=== PATIENT | female | born 1945 | race African-American/Black ===

== ENCOUNTER → 2016-12-23 | Outpatient (CLI) | payer MEDICARE | LOC: RAD 09:19 | PROVIDERS: ATTEND Internal Medicine | DX: C34.2 Malignant neoplasm of middle lobe, bronchus or lung (principal) | CPT/HCPCS: 71260; 74177 ==

== ENCOUNTER → 2017-01-11 | Outpatient (CLI) | payer MEDICARE | LOC: RAD 10:12 | PROVIDERS: ATTEND Internal Medicine | DX: C34.2 Malignant neoplasm of middle lobe, bronchus or lung (principal); M81.0 Age-related osteoporosis without current pathological fracture | CPT/HCPCS: 78306; 77080; A9503; Q9969 ==

== ENCOUNTER → 2017-03-24 | Outpatient (CLI) | payer MEDICARE ==
--- NOTE | 2017-03-24 11:16 | RADIOLOGY REPORT (SQ) ---
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 Images reviewed with lung, soft tissue and bone windows. Reconstructed coronal and sagittal MPR images reviewed. All images stored on PACS. All CT scanners at this facility use dose modulation, iterative reconstruction, and/or weight based d osing when appropriate to reduce radiation dose to as low as reasonably achievable (ALARA). [facility]: Dose Right [facility]: CareDose [facility]: Dose Right [facility]: Teradose 4D [facility]: [employer] CONTRAST TYPE AND DOSE: 91 Isovue 370- low osmolar. RENAL FUNCTION: Creatinine 0.8 RADIATION DOSE: . LIMITATIONS: None. FINDINGS: LUNGS AND PLEURA: The previously described spiculated nodule in the left lung apex appears slightly smaller on the current study measuring 9.9 mm in greatest diameter. The previously describ ed right upper lobe cavitary post treatment consolidation appears essentially unchanged as compared t o the previous study. The previously described increased density in the right lung base appears slig htly more confluent on the current study. HILAR AND MEDIASTINAL STRUCTURES: The previously described spiculated mass at the level of the bronch us intermedius and right hilum measures slightly larger on the current study measuring 3.7 x 5 2.6 cm in greatest diameters compared to 3.5 x 2.3 cm on the previous study. HEART AND VASCULAR STRUCTURES: No aneurysm or dissection. No central pulmonary emboli. No pericardi al effusion. HARDWARE: None in the chest. UPPER ABDOMEN: See results under abdominal CT scan THYROID AND OTHER SOFT TISSUES: No masses. No adenopathy. BONES: No significant finding. OTHER: No other significant finding. IMPRESSION: The previously described spiculated mass at the level of the bronchus intermedius and ri ght hilum measures slightly larger on the current study. Previously described right upper lobe cavit cristina post treatment consolidation appears essentially unchanged. The previously described spiculated nodule in the left lung apex measures slightly smaller on the current study. There is some increased density in the right lung base which appears slightly more confluent on the current study. Other fi ndings as noted above TECHNICAL DOCUMENTATION: JOB ID: [id number] Quality ID # 436: Final reports with documentation of one or more dose reduction techniques (e.g., Au tomated exposure control, adjustment of the mA and/or kV according to patient size, use of iterative reconstruction technique) 2010 [employer]- All Rights Reserved
--- NOTE | 2017-03-24 11:25 | RADIOLOGY REPORT (SQ) ---
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 No oral contrast. Images reviewed with lung, soft tissue, and bone windows. Reconstructed coronal and sagittal MPR images reviewed. Delayed images for evaluation of the urinary system also acquired. All images stored on PACS. All CT scanners at this facility use dose modulation, iterative reconstruction, and/or weight based d osing when appropriate to reduce radiation dose to as low as reasonably achievable (ALARA). [facility]: Dose Right [facility]: CareDose [facility]: Dose Right [facility]: Teradose 4D [facility]: [employer] TEK CONTRAST TYPE AND DOSE: contrast/concentration: Isovue 370.00 mg/ml; Total Contrast Delivered: 91.0 ml; Total Saline Delivered: 70.0 ml 91 Isovue 370 RENAL FUNCTION: Creatinine 0.9 RADIATION DOSE: Up-to-date CT equipment and radiation dose reduction techniques were employed. CTDIv ol: 5.1 - 18.0 mGy. DLP: 1612 mGy-cm.. LIMITATIONS: None. FINDINGS: LOWER CHEST: See results under chest CT scan LIVER: Normal size. No masses. No dilated ducts. Small hepatic cyst in the left lobe of the liver a ppears stable. SPLEEN: Normal size. No focal lesions. PANCREAS: No masses. No significant calcifications. No adjacent inflammation or peripancreatic fluid collections. Pancreatic duct not dilated. GALLBLADDER: No identified stones by CT criteria. No inflammatory changes to suggest cholecystitis. ADRENAL GLANDS: Left adrenal mass appears stable. RIGHT KIDNEY AND URETER: No solid masses. No significant calcifications. No hydronephrosis or hyd roureter. LEFT KIDNEY AND URETER: No solid masses. No significant calcifications. No hydronephrosis or hydr oureter. AORTA AND VESSELS: No aneurysm. No dissection. There is some ectasia of the abdominal aorta and darius c vessels with vascular calcifications and a small component of intraluminal clot Renal arteries, SMA , celiac without stenosis. RETROPERITONEUM: No retroperitoneal adenopathy, hemorrhage or masses. BOWEL AND PERITONEAL CAVITY: No masses or inflammatory changes. No free fluid or peritoneal masses. APPENDIX: Not visualized. PELVIS: No mass. No free fluid. Normal bladder. The previously described small cyst in the left pel vis appears stable. ABDOMINAL WALL: No masses. No hernias. BONES: No significant or acute findings. OTHER: No other significant finding. IMPRESSION: No significant interval change as compared to the previous study. Findings as noted abo ve TECHNICAL DOCUMENTATION: JOB ID: [id number] Quality ID # 436: Final reports with documentation of one or more dose reduction techniques (e.g., Au tomated exposure control, adjustment of the mA and/or kV according to patient size, use of iterative reconstruction technique) 2010 [employer] All Rights Reserved
== END ==
LOC: RAD 10:06
PROVIDERS: ATTEND Internal Medicine
DX: C34.2 Malignant neoplasm of middle lobe, bronchus or lung (principal)
CPT/HCPCS: 71260; 74177

== ENCOUNTER 2017-07-06 14:54 | Outpatient (CLI) | payer MEDICARE ==
[~2017-07-06 14:54] MED LIST: NIVOLUMAB 200 MG, NIVOLUMAB 40 MG in NORMAL SALINE 100 ML IV PRN; NORMAL SALINE 250 ML IV PRN
[2017-07-06 16:06] VITALS: BP 124/70
== END 2017-07-06 16:35 | disposition home or self-care (01) ==
LOC: II 14:54 → 5TH 15:00 → II 16:35
PROVIDERS: ATTEND Internal Medicine
PROC: 3E0330M Introduction of Antineoplastic, Monoclonal Antibody, into Peripheral Vein, Percutaneous Approach (ICD-10-PCS; principal; 2017-07-06)
DX: Z51.11 Encounter for antineoplastic chemotherapy (principal); C34.2 Malignant neoplasm of middle lobe, bronchus or lung
CPT/HCPCS: 96413; J9299 ×2

== ENCOUNTER → 2017-08-23 | Outpatient (CLI) | payer MEDICARE ==
--- NOTE | 2017-08-23 14:19 | RADIOLOGY REPORT (SQ) ---
EXAM DESCRIPTION: CT CHEST WITH COMPLETED DATE/TIME: 08/23/2017 11:13 am REASON FOR STUDY: C34.2 MALIGNANT NEOPLASM OF MIDDLE LOBE, BRONCHUS OR LUNG C34.2 MALIGNANT NEOPLAS M OF MIDDLE LOBE, BRONCHUS OR LUNG COMPARISON: 03/24/2017 TECHNIQUE: CT scan of the chest performed using helical scanning technique with dynamic intravenous contrast injection. Images reviewed with lung, soft tissue and bone windows. Reconstructed coronal and sagittal MPR images reviewed. All images stored on PACS. All CT scanners at this facility use dose modulation, iterative reconstruction, and/or weight based d osing when appropriate to reduce radiation dose to as low as reasonably achievable (ALARA). [facility]: Dose Right [facility]: CareDose [facility]: Dose Right [facility]: Teradose 4D [facility]: [employer] CONTRAST TYPE AND DOSE: 95 cc Isovue 370- low osmolar. RENAL FUNCTION: Creatinine 0.8 RADIATION DOSE: . LIMITATIONS: None. FINDINGS: LUNGS AND PLEURA: The small spiculated nodule is seen in the left apex. This is unchanged . A cavitary lesion associated with the right upper and middle lobe with possible radiation change i s stable. The lesion in the upper aspect of the right lower lobe that is contiguous with the hilum i s larger, measuring 43 x 30 mm as opposed to 37 x 20 mm on the earlier study. HILAR AND MEDIASTINAL STRUCTURES: No identified masses or abnormal nodes. HEART AND VASCULAR STRUCTURES: No aneurysm or dissection. No central pulmonary emboli. No pericardi al effusion. HARDWARE: None in the chest. UPPER ABDOMEN: See separate report of the CT of the abdomen. THYROID AND OTHER SOFT TISSUES: No masses. No adenopathy. BONES: No metastases are seen. OTHER: No other significant finding. IMPRESSION: There has increased disease in the chest, predominantly with enlargement of the right lo wer lobe lesion that is in contact with the hilum. TECHNICAL DOCUMENTATION: JOB ID: [id number] Quality ID # 436: Final reports with documentation of one or more dose reduction techniques (e.g., Au tomated exposure control, adjustment of the mA and/or kV according to patient size, use of iterative reconstruction technique) 2010 [employer]- All Rights Reserved
--- NOTE | 2017-08-23 14:31 | RADIOLOGY REPORT (SQ) ---
EXAM DESCRIPTION: CT ABD/PELVIS WITH IV ONLY COMPLETED DATE/TIME: 08/23/2017 11:13 am REASON FOR STUDY: C34.2 MALIGNANT NEOPLASM OF MIDDLE LOBE, BRONCHUS OR LUNG C34.2 MALIGNANT NEOPLAS M OF MIDDLE LOBE, BRONCHUS OR LUNG COMPARISON: 03/24/2017 12/23/2016 TECHNIQUE: CT scan of the abdomen and pelvis performed using helical scanning technique with dynamic intravenous contrast injection. No oral contrast. Images reviewed with lung, soft tissue, and bone windows. Reconstructed coronal and sagittal MPR images reviewed. Delayed images for evaluation of the urinary system also acquired. All images stored on PACS. All CT scanners at this facility use dose modulation, iterative reconstruction, and/or weight based d osing when appropriate to reduce radiation dose to as low as reasonably achievable (ALARA). [facility]: Dose Right [facility]: CareDose [facility]: Dose Right [facility]: Teradose 4D [facility]: [employer] CONTRAST TYPE AND DOSE: contrast/concentration: Isovue 370.00 mg/ml; Total Contrast Delivered: 95.0 ml; Total Saline Delivered: 71.0 ml RENAL FUNCTION: Creatinine 0.8 RADIATION DOSE: CT Rad equipment meets quality standard of care and radiation dose reduction techniq ues were employed. CTDIvol: 5.4 - 7.4 mGy. DLP: 968 mGy-cm.. LIMITATIONS: None. FINDINGS: LOWER CHEST: See separate report of the CT of the chest. LIVER: Stable small cystic lesions once again seen. Liver is otherwise homogeneous. SPLEEN: Normal size. No focal lesions. PANCREAS: No masses. No significant calcifications. No adjacent inflammation or peripancreatic fluid collections. Pancreatic duct not dilated. GALLBLADDER: No identified stones by CT criteria. No inflammatory changes to suggest cholecystitis. ADRENAL GLANDS: Left adrenal mass is stable. RIGHT KIDNEY AND URETER: No solid masses. No significant calcifications. No hydronephrosis or hyd roureter. LEFT KIDNEY AND URETER: No solid masses. No significant calcifications. No hydronephrosis or hydr oureter. AORTA AND VESSELS: No aneurysm. No dissection. Renal arteries, SMA, celiac without stenosis. RETROPERITONEUM: No retroperitoneal adenopathy, hemorrhage or masses. BOWEL AND PERITONEAL CAVITY: No masses or inflammatory changes. No free fluid or peritoneal masses. APPENDIX: Not identified. PELVIS: A small left-sided pelvic cyst is stable. ABDOMINAL WALL: No masses. No hernias. BONES: No osseous metastases are seen. OTHER: No other significant finding. IMPRESSION: 1. Stable hepatic cystic lesions. 2. Stable left adrenal nodule. 3. Stable left pelvic cyst. TECHNICAL DOCUMENTATION: JOB ID: [id number] Quality ID # 436: Final reports with documentation of one or more dose reduction techniques (e.g., Au tomated exposure control, adjustment of the mA and/or kV according to patient size, use of iterative reconstruction technique) 2010 [employer]- All Rights Reserved
== END ==
LOC: WI 10:45
PROVIDERS: ATTEND Internal Medicine
DX: C34.2 Malignant neoplasm of middle lobe, bronchus or lung (principal)
CPT/HCPCS: 71260; 74177; 82565

== ENCOUNTER 2017-11-02 13:13 | Outpatient (CLI) | payer MEDICARE ==
[2017-11-02 14:25] VITALS: BP 119/61
== END 2017-11-02 15:00 | disposition home or self-care (01) ==
LOC: II 13:13 → 5TH 13:13 → II 15:00
PROVIDERS: ATTEND Internal Medicine
PROC: 3E0330M Introduction of Antineoplastic, Monoclonal Antibody, into Peripheral Vein, Percutaneous Approach (ICD-10-PCS; principal; 2017-11-02)
DX: Z51.11 Encounter for antineoplastic chemotherapy (principal); C34.2 Malignant neoplasm of middle lobe, bronchus or lung
CPT/HCPCS: 96413; J9299 ×2

== ENCOUNTER 2017-11-23 13:08 | Outpatient (CLI) | payer MEDICARE ==
[2017-11-23 14:12] VITALS: BP 120/62
== END 2017-11-23 15:10 | disposition home or self-care (01) ==
LOC: II 13:08 → 5TH 13:11 → II 15:10
PROVIDERS: ATTEND Internal Medicine
PROC: 3E0330M Introduction of Antineoplastic, Monoclonal Antibody, into Peripheral Vein, Percutaneous Approach (ICD-10-PCS; principal; 2017-11-23)
DX: Z51.11 Encounter for antineoplastic chemotherapy (principal); C34.2 Malignant neoplasm of middle lobe, bronchus or lung
CPT/HCPCS: 96413; J9299 ×2

== ENCOUNTER 2017-12-07 13:07 | Outpatient (CLI) | payer MEDICARE ==
[~2017-12-07 13:07] MED LIST changes: +NIVOLUMAB IV PRN; +NORMAL SALINE IV PRN
== END 2017-12-07 13:40 | disposition home or self-care (01) ==
LOC: II 13:07 → 5TH 13:11 → II 13:40
PROVIDERS: ATTEND Internal Medicine
DX: Z51.11 Encounter for antineoplastic chemotherapy (principal); C34.2 Malignant neoplasm of middle lobe, bronchus or lung; Z53.29 Procedure and treatment not carried out because of patient's decision for other reasons
CPT/HCPCS: J7050; J9299

== ENCOUNTER → 2017-12-20 | Outpatient (CLI) | payer MEDICARE, OTHER ==
--- NOTE | 2017-12-20 14:32 | RADIOLOGY REPORT (SQ) ---
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 TECHNIQUE: CT scan of the chest performed using helical scanning technique with dynamic intravenous contrast injection. Images reviewed with lung, soft tissue and bone windows. Reconstructed coronal and sagittal MPR images reviewed. All images stored on PACS. All CT scanners at this facility use dose modulation, iterative reconstruction, and/or weight based d osing when appropriate to reduce radiation dose to as low as reasonably achievable (ALARA). [facility]: Dose Right [facility]: CareDose [facility]: Dose Right [facility]: Teradose 4D [facility]: [employer] CONTRAST TYPE AND DOSE: 93 mL Isovue 370- low osmolar. RENAL FUNCTION: Creatinine 0.8. RADIATION DOSE: CT Rad equipment meets quality standard of care and radiation dose reduction techniq ues were employed. CTDIvol: 7.6 - 10.7 mGy. DLP: 1082 mGy-cm. . LIMITATIONS: None. FINDINGS: LUNGS AND PLEURA: 9 mm spiculated lesion in left upper lobe unchanged. Cavitary lesion in the right upper lobe with peripheral treatment changes is stable. Spiculated mass and the right low er lobe, contiguous with the right hilum, appears unchanged. Current measurements are 3.0 by 4.4 cm with prior measurements 3.0 x 4.3 cm. Patchy parenchymal densities in the peripheral right lower lob e with reticulonodular appearance appear unchanged. No pleural effusion or pleural thickening. HILAR AND MEDIASTINAL STRUCTURES: No identified masses or abnormal nodes. HEART AND VASCULAR STRUCTURES: No aneurysm or dissection. No central pulmonary emboli. No pericardi al effusion. HARDWARE: None in the chest. UPPER ABDOMEN: See separate report of the CT of the abdomen. THYROID AND OTHER SOFT TISSUES: No masses. No adenopathy. BONES: No significant finding. OTHER: No other significant finding. IMPRESSION: NO INTERVAL CHANGE IN APPEARANCE OF THE CHEST. DOMINANT MASS IN THE PERIHILAR RIGHT LOW ER LOBE WITH RETICULONODULAR DENSITIES IN THE PERIPHERAL LUNG WELL ADDITIONAL LESIONS IN THE RI GHT UPPER LOBE AND LEFT UPPER LOBE ARE UNCHANGED. TECHNICAL DOCUMENTATION: JOB ID: [id number] Quality ID # 436: Final reports with documentation of one or more dose reduction techniques (e.g., Au tomated exposure control, adjustment of the mA and/or kV according to patient size, use of iterative reconstruction technique) 2010 [employer]- All Rights Reserved Reading location - IP/workstation name: [email or web address]
--- NOTE | 2017-12-20 14:42 | RADIOLOGY REPORT (SQ) ---
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 TECHNIQUE: CT scan of the abdomen and pelvis performed using helical scanning technique with dynamic intravenous contrast injection. No oral contrast. Images reviewed with lung, soft tissue, and bone windows. Reconstructed coronal and sagittal MPR images reviewed. Delayed images for evaluation of the urinary system also acquired. All images stored on PACS. All CT scanners at this facility use dose modulation, iterative reconstruction, and/or weight based d osing when appropriate to reduce radiation dose to as low as reasonably achievable (ALARA). [facility]: Dose Right [facility]: CareDose [facility]: Dose Right [facility]: Teradose 4D [facility]: [employer] CONTRAST TYPE AND DOSE: contrast/concentration: Isovue 370.00 mg/ml; Total Contrast Delivered: 93.0 ml; Total Saline Delivered: 71.0 ml RENAL FUNCTION: Creatinine 0.8. RADIATION DOSE: . LIMITATIONS: None. FINDINGS: LOWER CHEST: No significant findings. No nodules or infiltrates. LIVER: Normal size. Stable cysts in the left lobe. No solid masses. No dilated ducts. SPLEEN: Normal size. No focal lesions. PANCREAS: No masses. No significant calcifications. No adjacent inflammation or peripancreatic fluid collections. Pancreatic duct not dilated. GALLBLADDER: No identified stones by CT criteria. No inflammatory changes to suggest cholecystitis. ADRENAL GLANDS: Stable left adrenal mass. RIGHT KIDNEY AND URETER: No solid masses. No significant calcifications. No hydronephrosis or hyd roureter. LEFT KIDNEY AND URETER: Stable cortical cyst. No solid masses. No significant calcifications. No hydronephrosis or hydroureter. AORTA AND VESSELS: No aneurysm. No dissection. Renal arteries, SMA, celiac without stenosis. RETROPERITONEUM: No retroperitoneal adenopathy, hemorrhage or masses. BOWEL AND PERITONEAL CAVITY: No masses or inflammatory changes. No free fluid or peritoneal masses. APPENDIX: Surgically absent. PELVIS: Stable small cyst along the left pelvic sidewall. No solid mass. No free fluid. Normal blad bre. ABDOMINAL WALL: No masses. No hernias. BONES: No significant or acute findings. OTHER: No other significant finding. IMPRESSION: 1. STABLE LEFT ADRENAL MASS. 2. STABLE SMALL CYSTS IN THE LEFT LOBE OF THE LIVER. STABLE CORTICAL CYST IN THE LEFT KIDNEY. STABL E SMALL CYST IN THE LEFT ADNEXA. 3. NO OTHER SIGNIFICANT OR ACUTE FINDING IN THE ABDOMEN OR PELVIS ON CT SCAN WITH IV CONTRAST. TECHNICAL DOCUMENTATION: JOB ID: [id number] Quality ID # 436: Final reports with documentation of one or more dose reduction techniques (e.g., Au tomated exposure control, adjustment of the mA and/or kV according to patient size, use of iterative reconstruction technique) 2010 [employer]- All Rights Reserved Reading location - IP/workstation name: [email or web address]
== END ==
LOC: RAD 10:35
PROVIDERS: ATTEND Internal Medicine
DX: C34.2 Malignant neoplasm of middle lobe, bronchus or lung (principal); E27.8 Other specified disorders of adrenal gland; K76.89 Other specified diseases of liver
CPT/HCPCS: 71260; 74177; 82565

== ENCOUNTER → 2018-04-20 | Outpatient (CLI) | payer MEDICARE, OTHER ==
--- NOTE | 2018-04-20 12:38 | RADIOLOGY REPORT (SQ) ---
EXAM DESCRIPTION: CT CHEST WITH; CT ABD/PELVIS WITH IV ONLY COMPLETED DATE/TIME: 04/20/2018 11:13 am REASON FOR STUDY: MALIGNANT NEOPLASM OF MIDDLE LOBE, BRONCHUS OR LUNG C34.2 MALIGNANT NEOPLASM OF M IDDLE LOBE, BRONCHUS OR LUNG COMPARISON: 12/20/2017. CONTRAST TYPE AND DOSE: contrast/concentration: Isovue 350.00 mg/ml; Total Contrast Delivered: 95.0 ml; Total Saline Delivered: 71.0 ml RENAL FUNCTION: Creatinine 0.7 TECHNIQUE: CT scan of the chest performed using helical scanning technique with dynamic intravenous contrast injection. Images reviewed with lung, soft tissue and bone windows. Reconstructed coronal a nd sagittal MPR images reviewed. All images stored on PACS. CT scan of the abdomen and pelvis performed with intravenous and with oral contrastusing helical scan tyra technique with dynamic intravenous contrast injection. Images reviewed with lung, soft tissue a nd bone windows. Reconstructed coronal and sagittal MPR images reviewed. Delayed images for evaluat ion of the urinary system also acquired and evaluated. All images stored on PACS. All CT scanners at this facility use dose modulation, iterative reconstruction, and/or weight based d osing when appropriate to reduce radiation dose to as low as reasonably achievable (ALARA). [facility]: Dose Right [facility]: CareDose [facility]: Dose Right [facility]: Teradose 4D [facility]: [employer] RADIATION DOSE: CT Rad equipment meets quality standard of care and radiation dose reduction techniq ues were employed. CTDIvol: 5.3 - 7.0 mGy. DLP: 966 mGy-cm. . LIMITATIONS: None. FINDINGS: CHEST: LUNGS AND PLEURA: Mass adjacent to the right hilum with architectural distortion/ spiculation. This looks larger on today's study, now measuring 4.1 x 4.9 cm AP by transverse. Adjacent airspace diseas e and mild cavitary changes extending into the right upper lobe. Similar configuration to prior. Mu ltiple interstitial reticulonodular opacities in the apex of the right lower lobe, also similar. Spi culated nodule in the apex of the left upper lobe looks slightly larger with maximal dimension now al l up to 1.2 cm. HILAR AND MEDIASTINAL STRUCTURES: Soft tissue fullness in the right hilum inferiorly is confluent wit h the above-noted mass. This generally look slightly progressive but difficult to discern any discre te nodes. HEART AND VASCULAR STRUCTURES: No aneurysm or dissection. No central pulmonary emboli. No pericardi al effusion. HARDWARE: None. THYROID AND OTHER SOFT TISSUES: No masses. No adenopathy. BONES: No significant finding. OTHER: No other significant finding. ABDOMEN AND PELVIS: LIVER: Circumscribed low-density lesions in the liver, left lobe. Largest measures just at 1.6 cm. Similar appearance to prior. SPLEEN: Normal size. No focal lesions. PANCREAS: No masses. No significant calcifications. No adjacent inflammation or peripancreatic fluid collections. Pancreatic duct not dilated. GALLBLADDER: No identified stones by CT criteria. No inflammatory changes to suggest cholecystitis. ADRENAL GLANDS: Ovoid left adrenal mass measures at least 3 cm. Similar to prior. RIGHT KIDNEY AND URETER: No solid masses. No significant calcification. No hydronephrosis or hydroure ter. LEFT KIDNEY AND URETER: No solid masses. No significant calcification. No hydronephrosis or hydrouret er. AORTA AND VESSELS: No aneurysm. No dissection. Renal arteries, SMA, celiac without stenosis. RETROPERITONEUM: No retroperitoneal adenopathy, hemorrhage or masses. BOWEL AND PERITONEAL CAVITY: No masses or inflammatory changes. No free fluid or peritoneal masses. APPENDIX: Surgically absent. ABDOMINAL WALL: No masses. No hernias. PELVIS: No mass or free fluid. Normal bladder. BONES: Spondylosis. No fracture or bone lesion. OTHER: No other significant finding. IMPRESSION: 1. Thoracic disease looks progressive. Dominant mass in the right lung looks slightly l arger. Slight progressive size increase in a left upper lobe nodule as well. Other lung findings lo ok fairly stable. 2. Abdominopelvic CT looks stable. No developing lesions. TECHNICAL DOCUMENTATION: JOB ID: [id number] Quality ID # 436: Final reports with documentation of one or more dose reduction techniques (e.g., Au tomated exposure control, adjustment of the mA and/or kV according to patient size, use of iterative reconstruction technique) 2010 [employer]- All Rights Reserved Reading location - IP/workstation name: [email or web address]
== END ==
LOC: RAD 10:35
PROVIDERS: ATTEND Internal Medicine
DX: C34.2 Malignant neoplasm of middle lobe, bronchus or lung (principal)
CPT/HCPCS: 71260; 74177; 82565

== ENCOUNTER → 2018-07-15 | Outpatient (CLI) | payer MEDICARE, OTHER ==
--- NOTE | 2018-07-15 13:01 | RADIOLOGY REPORT (SQ) ---
EXAM DESCRIPTION: CT CHEST WITH; CT ABD/PELVIS WITH IV ONLY COMPLETED DATE/TIME: 07/15/2018 11:24 am REASON FOR STUDY: MALIGNANT NEOPLASM OF MIDDLE LOBE, BRONCHUS OR LUNG C34.2 MALIGNANT NEOPLASM OF M IDDLE LOBE, BRONCHUS OR LUNG COMPARISON: PET-CT 01/19/2016 CT chest abdomen pelvis 04/20/2018, 12/20/2017, 08/23/2017, 03/24/2017 CONTRAST TYPE AND DOSE: contrast/concentration: Isovue 350.00 mg/ml; Total Contrast Delivered: 95.0 ml; Total Saline Delivered: 58.9 ml RENAL FUNCTION: Creatinine 0.7 TECHNIQUE: CT scan of the chest performed using helical scanning technique with dynamic intravenous contrast injection. Images reviewed with lung, soft tissue and bone windows. Reconstructed coronal a nd sagittal MPR images reviewed. All images stored on PACS. CT scan of the abdomen and pelvis performed with intravenous and without oral contrastusing helical s kavita technique with dynamic intravenous contrast injection. Images reviewed with lung, soft tissu e and bone windows. Reconstructed coronal and sagittal MPR images reviewed. Delayed images for eval uation of the urinary system also acquired and evaluated. All images stored on PACS. All CT scanners at this facility use dose modulation, iterative reconstruction, and/or weight based d osing when appropriate to reduce radiation dose to as low as reasonably achievable (ALARA). [facility]: Dose Right [facility]: CareDose [facility]: Dose Right [facility]: Teradose 4D [facility]: [employer] RADIATION DOSE: CT Rad equipment meets quality standard of care and radiation dose reduction techniq ues were employed. CTDIvol: 8.6 - 11.6 mGy. DLP: 1163 mGy-cm. . LIMITATIONS: None. FINDINGS: CHEST: LUNGS AND PLEURA: Right lung mass measured at the level of the bronchus intermedius today on axial im age 25 measures 5.6 x 3.8 cm in size (measured at the same location 04/20/2018 was 4.9 x 3.8 cm, and o n 12/20/2017 was 4.9 x 3.4 cm in size). No narrowing of the right bronchus intermedius. Stable small subcentimeter left apical spiculated nodule axial image 12. Stable post therapeutic changes in the right upper lobe along the superior edge major fissure, stable bandlike scarring in the right posterior costophrenic sulcus. No new lung parenchymal lesions. No pleural effusions. No pneumothorax. HILAR AND MEDIASTINAL STRUCTURES: No identified masses or abnormal nodes. HEART AND VASCULAR STRUCTURES: No aneurysm or dissection. No central pulmonary emboli. No pericardi al effusion. HARDWARE: None. THYROID AND OTHER SOFT TISSUES: No masses. No adenopathy. BONES: No significant finding. OTHER: No other significant finding. ABDOMEN AND PELVIS: LIVER: Normal size. No masses. No dilated ducts. Multiple benign hepatic cysts, largest left lobe l iver 1.6 cm in size, stable SPLEEN: Normal size. No focal lesions. PANCREAS: No masses. No significant calcifications. No adjacent inflammation or peripancreatic fluid collections. Pancreatic duct not dilated. GALLBLADDER: No identified stones by CT criteria. No inflammatory changes to suggest cholecystitis. ADRENAL GLANDS: Right adrenal gland unremarkable. Stable 4 cm left adrenal adenoma unchanged PET-CT 01/17/2016. Non metabolic at that time RIGHT KIDNEY AND URETER: No solid masses. No significant calcification. No hydronephrosis or hydroure ter. LEFT KIDNEY AND URETER: No solid masses. No significant calcification. No hydronephrosis or hydrouret er. AORTA AND VESSELS: No aneurysm. No dissection. Renal arteries, SMA, celiac without stenosis. RETROPERITONEUM: No retroperitoneal adenopathy, hemorrhage or masses. BOWEL AND PERITONEAL CAVITY: No masses or inflammatory changes. No free fluid or peritoneal masses. APPENDIX: Surgically absent ABDOMINAL WALL: No masses. No hernias. PELVIS: Post hysterectomy. No free fluid. No adenopathy or masses. Bladder unremarkable. BONES: No significant or acute findings. OTHER: No other significant finding. IMPRESSION: Continued increase in size of right lung mass abutting the bronchus intermedius without airway narrowing Stable left apical subcentimeter spiculated nodule No CT evidence of metastatic disease to the abdomen or pelvis TECHNICAL DOCUMENTATION: JOB ID: [id number] Quality ID # 436: Final reports with documentation of one or more dose reduction techniques (e.g., Au tomated exposure control, adjustment of the mA and/or kV according to patient size, use of iterative reconstruction technique) 2010 [employer]- All Rights Reserved Reading location - IP/workstation name: [email or web address] [id number]
== END ==
LOC: RAD 10:41
PROVIDERS: ATTEND Internal Medicine
DX: C34.2 Malignant neoplasm of middle lobe, bronchus or lung (principal)
CPT/HCPCS: 71260; 74177

== ENCOUNTER → 2018-09-19 | Outpatient (CLI) | payer MEDICARE, OTHER ==
--- NOTE | 2018-09-19 11:55 | RADIOLOGY REPORT (SQ) ---
EXAM DESCRIPTION: CT CHEST WITHOUT COMPLETED DATE/TIME: 09/19/2018 11:03 am REASON FOR STUDY: LUNG CA (C34.2) C34.2 MALIGNANT NEOPLASM OF MIDDLE LOBE, BRONCHUS OR LUNG COMPARISON: PET-CT 01/17/2016 CT chest 07/16/2015, 08/23/2017, 04/20/2018, 07/15/2018 TECHNIQUE: CT scan performed of the chest without intravenous contrast. Images reviewed with lung, soft tissue and bone windows. Reconstructed coronal and sagittal MPR images reviewed. All images st ored on PACS. All CT scanners at this facility use dose modulation, iterative reconstruction, and/or weight based d osing when appropriate to reduce radiation dose to as low as reasonably achievable (ALARA). [facility]: Dose Right [facility]: CareDose [facility]: Dose Right [facility]: Teradose 4D [facility]: [employer] RADIATION DOSE: CT Rad equipment meets quality standard of care and radiation dose reduction techniq ues were employed. CTDIvol: 7.9 mGy. DLP: 268 mGy-cm. mGy. LIMITATIONS: No technical limitations. FINDINGS: LUNGS AND PLEURA: The mass in the right lower lobe/right lower hilum is now 7.4 x 6 cm in size (was 5.6 x 3.8 cm on 07/15/2018). This mass narrows the right lower lobe segmental bronchi witho ut narrowing of the bronchus intermedius. There is now was small right pleural effusion layering dependently in the right chest. Postobstructi ve change in the right lower lobe is seen, along the posterior and lateral aspect of the mass with pa tchy new airspace disease. Stable bandlike scarring and lung bronchiectasis in the right upper lobe near the minor fissure. Stable 1 cm spiculated nodule left lung apex compared to previous studies. Next HILAR AND MEDIASTINAL STRUCTURES: No identified masses or abnormal nodes. No obvious aneurysm. HEART AND VASCULAR STRUCTURES: No aneurysm. No pericardial effusion. UPPER ABDOMEN: Stable hepatic cysts. THYROID AND OTHER SOFT TISSUES: No masses. No adenopathy. BONES: No significant finding. HARDWARE: None in the chest. OTHER: No other significant findings. IMPRESSION: Increase in size right lower lobe malignant mass TECHNICAL DOCUMENTATION: JOB ID: [id number] Quality ID # 436: Final reports with documentation of one or more dose reduction techniques (e.g., Au tomated exposure control, adjustment of the mA and/or kV according to patient size, use of iterative reconstruction technique) 2010 [employer]- All Rights Reserved Reading location - IP/workstation name: [email or web address]
== END ==
LOC: RAD 10:32
PROVIDERS: ATTEND Internal Medicine
DX: C34.2 Malignant neoplasm of middle lobe, bronchus or lung (principal)
CPT/HCPCS: 71250

== ENCOUNTER → 2019-02-01 | Outpatient (CLI) | payer MEDICARE, OTHER ==
--- NOTE | 2019-02-01 12:50 | RADIOLOGY REPORT (SQ) ---
EXAM DESCRIPTION: CT ABD/PELVIS WITH IV ONLY COMPLETED DATE/TIME: 02/01/2019 11:03 am REASON FOR STUDY: MALIGNANT NEOPLASM OF MIDDLE LOBE, BRONCHUS OR LUNG C34.2 MALIGNANT NEOPLASM OF M IDDLE LOBE, BRONCHUS OR LUNG COMPARISON: 07/15/2018 TECHNIQUE: CT scan of the abdomen and pelvis performed using helical scanning technique with dynamic intravenous contrast injection. No oral contrast. Images reviewed with lung, soft tissue, and bone windows. Reconstructed coronal and sagittal MPR images reviewed. Delayed images for evaluation of the urinary system also acquired. All images stored on PACS. All CT scanners at this facility use dose modulation, iterative reconstruction, and/or weight based d osing when appropriate to reduce radiation dose to as low as reasonably achievable (ALARA). [facility]: Dose Right [facility]: CareDose [facility]: Dose Right [facility]: Teradose 4D [facility]: [employer] CONTRAST TYPE AND DOSE: contrast/concentration: Isovue mg/ml; Total Contrast Delivered: 90.0 ml; To marisel Saline Delivered: 57.6 ml RENAL FUNCTION: BUN 16 creatinine 0.7 RADIATION DOSE: CT Rad equipment meets quality standard of care and radiation dose reduction techniq ues were employed. CTDIvol: 4.6 - 6.5 mGy. DLP: 848 mGy-cm.. LIMITATIONS: None. FINDINGS: LOWER CHEST: See separate report of the CT of the chest. LIVER: Stable hepatic cysts. No metastatic disease in the liver. SPLEEN: Normal size. No focal lesions. PANCREAS: No masses. No significant calcifications. No adjacent inflammation or peripancreatic fluid collections. Pancreatic duct not dilated. GALLBLADDER: No identified stones by CT criteria. No inflammatory changes to suggest cholecystitis. ADRENAL GLANDS: Stable 4 cm left adrenal mass. RIGHT KIDNEY AND URETER: No solid masses. No significant calcifications. No hydronephrosis or hyd roureter. LEFT KIDNEY AND URETER: No solid masses. No significant calcifications. No hydronephrosis or hydr oureter. AORTA AND VESSELS: No aneurysm. No dissection. Renal arteries, SMA, celiac without stenosis. RETROPERITONEUM: No retroperitoneal adenopathy, hemorrhage or masses. BOWEL AND PERITONEAL CAVITY: No masses or inflammatory changes. No free fluid or peritoneal masses. APPENDIX: Not identified. PELVIS: No mass. No free fluid. Normal bladder. ABDOMINAL WALL: No masses. No hernias. BONES: No significant or acute findings. OTHER: No other significant finding. IMPRESSION: Stable left adrenal mass. There is no evidence of metastatic disease in the abdomen or pelvis. TECHNICAL DOCUMENTATION: JOB ID: [id number] Quality ID # 436: Final reports with documentation of one or more dose reduction techniques (e.g., Au tomated exposure control, adjustment of the mA and/or kV according to patient size, use of iterative reconstruction technique) 2010 [employer]- All Rights Reserved Reading location - IP/workstation name: [email or web address]
--- NOTE | 2019-02-01 12:52 | RADIOLOGY REPORT (SQ) ---
EXAM DESCRIPTION: CT CHEST WITH COMPLETED DATE/TIME: 02/01/2019 11:03 am REASON FOR STUDY: MALIGNANT NEOPLASM OF MIDDLE LOBE, BRONCHUS OR LUNG C34.2 MALIGNANT NEOPLASM OF M IDDLE LOBE, BRONCHUS OR LUNG COMPARISON: 09/19/2018 TECHNIQUE: CT scan of the chest performed using helical scanning technique with dynamic intravenous contrast injection. Images reviewed with lung, soft tissue and bone windows. Reconstructed coronal and sagittal MPR and MIP images reviewed. All images stored on PACS. All CT scanners at this facility use dose modulation, iterative reconstruction, and/or weight based d osing when appropriate to reduce radiation dose to as low as reasonably achievable (ALARA). [facility]: Dose Right [facility]: CareDose [facility]: Dose Right [facility]: Teradose 4D [facility]: [employer] CONTRAST TYPE AND DOSE: Omnipaque 350 95 cc RENAL FUNCTION: Creatinine 0.7 RADIATION DOSE: . LIMITATIONS: None. FINDINGS: LUNGS AND PLEURA: Mildly decreased size of the right lower lobe mass measuring 6.8 x 5.2 c m, previously documented at 7.4 x 5.8 cm. There is persistent mass effect with narrowing of the righ t lower lobe segmental bronchi. Increased conspicuity of an area of could solid lesion more inferior ly measuring approximately 2.2 by 1.6 cm (series 6, image 72). Patchy adjacent areas of ground-glass attenuation are stable to mildly improved compared to prior. Stable area of linear consolidation an d scarring within the right upper lobe. Stable spiculated nodule within the left lung apex measuring 1.0 cm. No pneumothorax. No significant pleural effusion. HILAR AND MEDIASTINAL STRUCTURES: Stable right perihilar consolidation as above. No new mediastinal, hilar or axillary adenopathy. HEART AND VASCULAR STRUCTURES: No aneurysm or dissection. No central pulmonary emboli. No pericardi al effusion. HARDWARE: None in the chest. UPPER ABDOMEN: See separate report of the CT of the abdomen. THYROID AND OTHER SOFT TISSUES: No masses. No adenopathy. BONES: No significant finding. OTHER: No other significant finding. IMPRESSION: 1. Mildly decreased size of the right lower lobe mass measuring 6.8 x 5.2 cm, previousl y 7.4 x 5.8 cm. 2. Increased size of an area of nodular consolidation more inferiorly measuring up to 2.2 cm. Findi ngs may represent satellite lesion versus postobstructive atelectatic change or infection/inflammatio n. 3. Stable left upper lobe 1 cm nodule. TECHNICAL DOCUMENTATION: JOB ID: [id number] Quality ID # 436: Final reports with documentation of one or more dose reduction techniques (e.g., Au tomated exposure control, adjustment of the mA and/or kV according to patient size, use of iterative reconstruction technique) 2010 [employer]- All Rights Reserved Reading location - IP/workstation name: [email or web address]
== END ==
LOC: RAD 10:29
PROVIDERS: ATTEND Internal Medicine
DX: C34.2 Malignant neoplasm of middle lobe, bronchus or lung (principal)
CPT/HCPCS: 71260; 74177

== ENCOUNTER 2019-03-13 20:32 | Emergency (ER) | payer MEDICARE ==
--- NOTE | 2019-03-13 21:03 | ER Document Report ---
ED Medical Screen (RME) - General Chief Complaint: Leg Pain Stated Complaint: RIGHT LEG PAIN AND SWELLING Time Seen by Provider: 03/13/19 20:58 Primary Care Provider: NICOLE SANTAMARIA MD [Primary Care Provider] - Follow up as needed Mode of Arrival: Ambulatory Information source: Patient Notes: 73-year-old female presents to ED for complaint of right lower leg pain and swelling. Both legs are edematous. Patient states they swell when she is up on a more hanging down to much but at nighttime they go back down to normal the right leg is more swollen to her. She does have a history of lung cancer. She also has a history of high blood pressure and cholesterol. Patient is alert oriented respirations regular and unlabored speaking in full sentences walks wit h even steady gait. I have greeted and performed a rapid initial assessment of this patient. A comprehensive ED assessment and evaluation of the patient, analysis of test results and completion of medical decision making process will be conducted by an additional ED providers. Dictation of this chart was performed using voice recognition software; therefore, there may be some unintended grammatical errors. TRAVEL OUTSIDE OF THE [place] IN LAST 30 DAYS: No - Related Data Allergies/Adverse Reactions: No Known Allergies Allergy (Verified 03/13/19 20:46) Past Medical History - Social History Chew tobacco use (# tins/day): No Frequency of alcohol use: None Drug Abuse: None - Past Medical History Cardiac Medical History: Reports: Hx Hypertension Denies: Hx Congestive Heart Failure, Hx Coronary Artery Disease, Hx Heart Attack Pulmonary Medical History: Reports: Hx Bronchitis, Hx COPD, Hx Pneumonia - 2006 Denies: Hx Asthma, Hx Tuberculosis Neurological Medical History: Denies: Hx Cerebrovascular Accident, Hx Seizures Renal/ Medical History: Denies: Hx End Stage Renal Disease, Hx Kidney Stones, Hx Peritoneal Dialysis GI Medical History: Denies: Hx Cirrhosis, Hx Gastroesophageal Reflux Disease, Hx Ulcer Musculoskeltal Medical History: Denies Hx Arthritis, Denies Hx Multiple Sclerosis Psychiatric Medical History: Denies: Hx Bipolar Disorder, Hx Depression, Hx Schizophrenia Past Surgical History: Reports: Hx Appendectomy. Denies: Hx Hysterectomy, Hx Pacemaker - Immunizations Hx Diphtheria, Pertussis, Tetanus Vaccination: No Physical Exam - Vital signs Vitals: Temp Pulse Resp BP Pulse Ox 98.7 F 81 16 123/65 97 03/13/19 20:46 03/13/19 20:46 03/13/19 20:46 03/13/19 20:46 03/13/19 20:46 Course - Vital Signs Vital signs: Temp Pulse Resp BP Pulse Ox 98.7 F 81 16 123/65 97 03/13/19 20:46 03/13/19 20:46 03/13/19 20:46 03/13/19 20:46 03/13/19 20:46 Doctor's Discharge - Discharge Referrals: NICOLE SANTAMARIA MD [Primary Care Provider] - Follow up as needed
[2019-03-13 21:27] LABS: ABSOLUTE EOSINOPHILS # (AUTO) 0.1 10^3/uL (0.0-0.6); ABSOLUTE LYMPHOCYTES (AUTO) 1.6 10^3/uL (0.5-4.7); ABSOLUTE MONOCYTES (AUTO) 0.1 10^3/uL (0.1-1.4); ABSOLUTE NEUT (AUTO) 6.3 10^3/uL (1.7-8.2); BASOPHILS % (AUTO) 0.5 % (0-2); HEMATOCRIT 32.8 % (36.0-47.0); HEMOGLOBIN 10.8 g/dL (12.0-15.5); LYMPHOCYTES % (AUTO) 19.8 % (13-45); MEAN CORPUSCULAR HEMOGLOBIN 29.5 pg (27.0-33.4); MEAN CORPUSCULAR HGB CONC 32.8 g/dL (32.0-36.0); MEAN CORPUSCULAR VOLUME 90 fl (80-97); PLATELET COUNT 204 10^3/uL (150-450); RED BLOOD COUNT 3.64 10^6/uL (3.72-5.28); RED CELL DISTRIBUTION WIDTH 18.7 % (11.5-14.0); SEGMENTED NEUTROPHILS % (AUTO) 77.7 % (42-78); TOTAL CELLS COUNTED % (AUTO) 100 %; WHITE BLOOD COUNT 8.2 10^3/uL (4.0-10.5)
[2019-03-13 21:31] LABS: APPEARANCE,URINE CLEAR; BILIRUBIN,URINE NEGATIVE (NEGATIVE); COLOR,URINE YELLOW; GLUCOSE, URINE NEGATIVE (NEGATIVE); KETONES,URINE NEGATIVE (NEGATIVE); LEUKOCYTE ESTERASE,URINE LARGE (NEGATIVE); NITRITE,URINE NEGATIVE (NEGATIVE); PROTEIN,URINE NEGATIVE (NEGATIVE)
[2019-03-13 21:32] LABS: URINE SPECIFIC GRAVITY 1.022
[2019-03-13 21:45] LABS: ALANINE AMINOTRANSFERASE 24 U/L (9-52); ALBUMIN 3.8 g/dL (3.5-5.0); ALKALINE PHOSPHATASE 52 U/L (38-126); ANION GAP 6 (5-19); ASPARTATE AMINO TRANSFERASE 24 U/L (14-36); BILIRUBIN,DIRECT 0.3 mg/dL (0.0-0.4); BILIRUBIN,TOTAL 0.6 mg/dL (0.2-1.3); BLOOD UREA NITROGEN 18 mg/dL (7-20); CALCIUM 9.6 mg/dL (8.4-10.2); CARBON DIOXIDE 28 mmol/L (22-30); CHLORIDE 104 mmol/L (98-107); GLUCOSE 143 mg/dL (75-110); POTASSIUM 4.2 mmol/L (3.6-5.0); SODIUM 137.8 mmol/L (137-145); TOTAL PROTEIN 6.7 g/dL (6.3-8.2)
--- NOTE | 2019-03-13 22:17 | RADIOLOGY REPORT (SQ) ---
EXAM DESCRIPTION: US EXTREMITY VEINS UNILATERAL COMPLETED DATE/TME: 03/13/2019 20:58 CLINICAL HISTORY: 73 years, Female, right lower leg pain and swelling EXAM DESCRIPTION: CLINICAL HISTORY: 73 years Female right lower leg pain and swelling COMPARISON: None. TECHNIQUE: Duplex and color Doppler imaging performed to evaluate the extremity deep venous structures. Compression imaging and augmentation imaging performed. FINDINGS: No thrombus is identified in the deep venous structures imaged. There is normal flow, compressibility, and augmentation throughout. IMPRESSION: No DVT is identified.
--- NOTE | 2019-03-13 22:36 | RADIOLOGY REPORT (SQ) ---
EXAM DESCRIPTION: XR CHEST 2 VIEWS COMPLETED DATE/TME: 03/13/2019 21:03 CLINICAL HISTORY: 73 years Female pedal edema hx lung ca COMPARISON: CT 02/01/2019. FINDINGS: Heart size and mediastinal contour appear similar to the prior. Large lobulated soft tissue mass in the right midlung field and hilum consistent with known lung carcinoma. Soft tissue density in the left lung apex consistent with small spiculated mass seen on CT. Small amount of infiltrate or nodularity in the lateral right lung base. IMPRESSION: Large soft tissue mass in the right midlung and hilum with additional areas of mass seen in the lateral right lung base and left apex similar to the previous
[2019-03-14] MEDS ORDERED: DOXYCYCLINE HYCLATE 100 MG TABLET PO ONE (00:40)
--- NOTE | 2019-03-14 00:47 | ER Document Report ---
ED General - General Chief Complaint: Leg Pain Stated Complaint: RIGHT LEG PAIN AND SWELLING Time Seen by Provider: 03/13/19 20:58 Mode of Arrival: Ambulatory Notes: Patient is a pleasant 73-year-old female who presents with complaint of pain and redness in her right leg. She says she does have chronic swelling in both legs that comes and goes. She says that her legs are usually swollen but she has been night and the swelling goes away. This morning she woke up she had increasing pain in her right leg with will be increasing swelling and noticed a red streak on her right lower leg. No fevers. No vomiting. No chest pain. No shortness of breath. She does have a history of lung cancer and does receive chemotherapy. She says she receives chemotherapy through IVs in her upper extremities. She has not had any IVs in her lower extremities. No abdominal pain. No other complaints at this time. TRAVEL OUTSIDE OF THE [place] IN LAST 30 DAYS: No - Related Data Allergies/Adverse Reactions: No Known Allergies Allergy (Verified 03/13/19 20:46) Past Medical History - General Information source: Patient - Social History Smoking Status: Current Every Day Smoker Chew tobacco use (# tins/day): No Frequency of alcohol use: None Drug Abuse: None Family History: Reviewed & Not Pertinent Patient has suicidal ideation: No Patient has homicidal ideation: No - Past Medical History Cardiac Medical History: Reports: Hx Hypertension Denies: Hx Congestive Heart Failure, Hx Coronary Artery Disease, Hx Heart Attack Pulmonary Medical History: Reports: Hx Bronchitis, Hx COPD, Hx Pneumonia - 2006 Denies: Hx Asthma, Hx Tuberculosis Neurological Medical History: Denies: Hx Cerebrovascular Accident, Hx Seizures Renal/ Medical History: Denies: Hx End Stage Renal Disease, Hx Kidney Stones, Hx Peritoneal Dialysis GI Medical History: Denies: Hx Cirrhosis, Hx Gastroesophageal Reflux Disease, Hx Ulcer Musculoskeletal Medical History: Denies Hx Arthritis, Denies Hx Multiple Sclerosis Psychiatric Medical History: Denies: Hx Bipolar Disorder, Hx Depression, Hx Schizophrenia Past Surgical History: Reports: Hx Appendectomy. Denies: Hx Hysterectomy, Hx Pacemaker - Immunizations Hx Diphtheria, Pertussis, Tetanus Vaccination: No Hx Pneumococcal Vaccination: 09/06/11 Review of Systems - Review of Systems Notes: My Normal Review Basic REVIEW OF SYSTEMS: CONSTITUTIONAL : Denies fever, chills, or sweats. Denies recent illness. CARDIOVASCULAR: Denies chest pain. RESPIRATORY: Denies cough, cold, or chest congestion. Denies shortness of breath, difficulty breathing, or wheezing. GASTROINTESTINAL: Denies abdominal pain. Denies nausea, vomiting, or diarrhea. MUSCULOSKELETAL: right sided Leg pain. SKIN: Denies rash or skin lesions. NEUROLOGICAL: Denies altered mental status or loss of consciousness. ALL OTHER SYSTEMS REVIEWED AND NEGATIVE. Physical Exam - Vital signs Vitals: Temp Pulse Resp BP Pulse Ox 98.7 F 81 16 123/65 97 03/13/19 20:46 03/13/19 20:46 03/13/19 20:46 03/13/19 20:46 03/13/19 20:46 - Notes Notes: General Appearance: Well nourished, alert, cooperative, no acute distress, no obvious discomfort. Well-appearing. Vitals: reviewed, See vital signs table. Head: no swelling or tenderness to the head Eyes: PERRL, EOMI, Conjuctiva clear Mouth: No decreasd moisture Lungs: No wheezing, No rales, No rhonci, No accessory muscle use, good air exchange bilaterally. Heart: Normal rate, Regular rythm, No murmur, no rub Abdomen: Normal BS, soft, No rigidity, No abdominal tenderness, No guarding, no rebound, no abdominal masses, no organomegaly Extremities: strength 5/5 in all extremities, good pulses in all extremities, she has pain in the right leg to palpation. Is mainly along a single red streak to start to the foot and ends just below the knee. It is consistent with a p hlebitis or lymphangitis. Good distal pulses. Good capillary refill in the foot. No crepitance. Remainder of the leg is normal-appearing. Skin: warm, dry, appropriate color, no rash Neuro: speech clear, oriented x 3, normal affect, responds appropriately to questions. Course - Re-evaluation Re-evalutation: 03/14/19 00:54 Patient is well-appearing. I feel patient is safe to be discharged home. Patient has a red streak along the leg consistent with either a phlebitis or a lymphangitis. I will place her on antibiotics. I encouraged her to keep her leg elevated to reduce swelling. Encouraged to return to ER if she has sp reading redness, fevers, or she feels unwell. Patient does take chemotherapy but she is not neutropenic and she is afebrile and she looks well and therefore I do not feel requires admission. Dictation of this chart was performed using voice recognition software; therefore, there may be some unintended grammatical errors. - Vital Signs Vital signs: Temp Pulse Resp BP Pulse Ox 98.7 F 81 16 123/65 97 03/13/19 20:46 03/13/19 20:46 03/13/19 20:46 03/13/19 20:46 03/13/19 20:46 - Laboratory Result Diagrams: 03/13/19 21:05 03/13/19 21:05 Laboratory results interpreted by me: 03/13/19 03/13/19 03/13/19 21:05 21:05 21:05 RBC 3.64 L Hgb 10.8 L Hct 32.8 L RDW 18.7 H Monocytes % 1.0 L Glucose 143 H Urine Blood SMALL H Urine Urobilinogen 4.0 H Ur Leukocyte Esterase LARGE H Urine Ascorbic Acid 20 H Discharge - Discharge Clinical Impression: Leg pain Qualifiers: Laterality: right Qualified Code(s): M79.604 - Pain in right leg Condition: Good Disposition: HOME, SELF-CARE Additional Instructions: On exam you have a red streak that is going up your leg. Sometimes this can represent an infection or inflammation of the leg. We will treat you with an antibiotic called doxycycline. Doxycycline will make your skin more sensitive to the sun so please make sure you keep your skin covered or wear sunscreen whenever out in the sun. Please try to limit the amount of weight you are putting on your leg in the next few days. Keep the leg elevated to reduce swelling. Your ultrasound today did not show any evidence of blood clots in your legs. Please return to the ER immediately if you have fevers, spreading redness, worsening leg pain or leg swelling, or if you feel that you are worsening in any way. Please follow-up with your doctor next 1 to 2 days for reevaluation. Prescriptions: Doxycycline Hyclate 100 mg PO BID #14 capsule
[2019-03-14 01:11] VITALS: BP 128/66
== END 2019-03-14 01:11 | disposition home or self-care (01) ==
LOC: ER 20:32
DX: M79.661 Pain in right lower leg (principal); L53.9 Erythematous condition, unspecified; C34.90 Malignant neoplasm of unspecified part of unspecified bronchus or lung; Z79.899 Other long term (current) drug therapy; F17.200 Nicotine dependence, unspecified, uncomplicated; I10 Essential (primary) hypertension; J44.9 Chronic obstructive pulmonary disease, unspecified; M79.89 Other specified soft tissue disorders
CPT/HCPCS: 99284; 36415; 85025; 80053; 81001; 83880; 93971; 71046; A9270

== ENCOUNTER → 2019-06-08 | Outpatient (CLI) | payer MEDICARE ==
--- NOTE | 2019-06-08 12:47 | RADIOLOGY REPORT (SQ) ---
EXAM DESCRIPTION: CT CHEST WITH; CT ABDOMEN IV CONTRAST ONLY COMPLETED DATE/TIME: 06/08/2019 11:15 am REASON FOR STUDY: C34.2 MALIGNANT NEOPLASM OF MIDDLE LOBE, BRONCHUS OR LUNG C34.2 MALIGNANT NEOPLAS M OF MIDDLE LOBE, BRONCHUS OR LUNG COMPARISON: CT chest abdomen pelvis 08/23/2017, 07/15/2018, 02/01/2019 CONTRAST TYPE AND DOSE: contrast/concentration: Isovue 350.00 mg/ml; Total Contrast Delivered: 83.0 ml; Total Saline Delivered: 56.0 ml RENAL FUNCTION: Creatinine 0.7 TECHNIQUE: CT scan of the chest performed using helical scanning technique with dynamic intravenous contrast injection. Images reviewed with lung, soft tissue and bone windows. Reconstructed coronal a nd sagittal MPR images reviewed. All images stored on PACS. CT scan of the abdomen and pelvis performed with intravenous and without oral contrastusing helical s kavita technique with dynamic intravenous contrast injection. Images reviewed with lung, soft tissu e and bone windows. Reconstructed coronal and sagittal MPR images reviewed. Delayed images for eval uation of the urinary system also acquired and evaluated. All images stored on PACS. All CT scanners at this facility use dose modulation, iterative reconstruction, and/or weight based d osing when appropriate to reduce radiation dose to as low as reasonably achievable (ALARA). [facility]: Dose Right [facility]: CareDose [facility]: Dose Right [facility]: Teradose 4D [facility]: [employer] RADIATION DOSE: CT Rad equipment meets quality standard of care and radiation dose reduction techniq ues were employed. CTDIvol: 4.5 - 5.9 mGy. DLP: 639 mGy-cm. . LIMITATIONS: None. FINDINGS: CHEST: LUNGS AND PLEURA: There is interval increase in size of the right lower lobe mass compared to the samantha or study. Currently, this mass at the level of the bronchus intermedius measures 8 cm transverse by 7.5 cm AP (was 5.4 x [address] chest 02/01/2019). This mass now occludes the bronchus intermedius an d causes high-grade narrowing of the right upper lobe bronchus on axial image 44-49. There is a stable spiculated left apical mass 8 to 9 mm in diameter on axial image 19. No pleural effusions. No pneumothorax. HILAR AND MEDIASTINAL STRUCTURES: No identified masses or abnormal nodes. HEART AND VASCULAR STRUCTURES: No aneurysm or dissection. No central pulmonary emboli. No pericardi al effusion. HARDWARE: None. THYROID AND OTHER SOFT TISSUES: No masses. No adenopathy. BONES: No significant finding. OTHER: No other significant finding. ABDOMEN AND PELVIS: LIVER: Normal size. No masses. No dilated ducts. Multiple less than 2 cm left lobe liver hepatic cy sts. SPLEEN: Normal size. No focal lesions. PANCREAS: No masses. No significant calcifications. No adjacent inflammation or peripancreatic fluid collections. Pancreatic duct not dilated. GALLBLADDER: No identified stones by CT criteria. No inflammatory changes to suggest cholecystitis. ADRENAL GLANDS: Stable 4 x 2 cm left adrenal mass. Right adrenal gland unremarkable RIGHT KIDNEY AND URETER: No solid masses. No significant calcification. No hydronephrosis or hydroure ter. LEFT KIDNEY AND URETER: No solid masses. No significant calcification. No hydronephrosis or hydrouret er. AORTA AND VESSELS: No aneurysm. No dissection. Renal arteries, SMA, celiac without stenosis. RETROPERITONEUM: No retroperitoneal adenopathy, hemorrhage or masses. BOWEL AND PERITONEAL CAVITY: No masses or inflammatory changes. No free fluid or peritoneal masses. APPENDIX: Not identified. No right lower quadrant inflammatory change ABDOMINAL WALL: No masses. No hernias. PELVIS: No mass or free fluid. Normal bladder. Post hysterectomy. BONES: No significant or acute findings. OTHER: No other significant finding. IMPRESSION: Continued growth of the right lower lobe mass, now occluding the bronchus intermedius an d narrowing the right upper lobe bronchus. Stable left adrenal mass TECHNICAL DOCUMENTATION: JOB ID: [id number] Quality ID # [id number]: Final reports with documentation of one or more dose reduction techniques (e.g., Au tomated exposure control, adjustment of the mA and/or kV according to patient size, use of iterative reconstruction technique) 2010 [employer]- All Rights Reserved Reading location - IP/workstation name: [email or web address]
== END ==
LOC: RAD 10:27
PROVIDERS: ATTEND Internal Medicine
DX: C34.2 Malignant neoplasm of middle lobe, bronchus or lung (principal); E27.9 Disorder of adrenal gland, unspecified
CPT/HCPCS: 71260; 74160; 82565

== ENCOUNTER 2019-09-04 12:05 | Inpatient (IN) | payer MEDICARE ==
[2019-09-04] MEDS ORDERED: IPRATROPIUM/ALBUTEROL 0.5-2.5 MG/3 ML AMPUL NEB ONE (13:26)
--- NOTE | 2019-09-04 13:28 | ER Document Report ---
ED Medical Screen (RME) - General Chief Complaint: General Weakness Stated Complaint: ABNORMAL LABS Time Seen by Provider: 09/04/19 13:14 Primary Care Provider: NICOLE SANTAMARIA MD [Primary Care Provider] - Follow up as needed Notes: Patient is a 74-year-old female with a history of lung CA who presents the emergency department with a chief complaint of weakness. Patient reports over the past 4 to 5 days she has had a decreased appetite and weakness all over. She reports increased shortness of breath that is different from her baseline. Patient reports wheezing with runny nose and congestion. Patient denies chills or fever. Patient reports she is currently going through chemo with her last chemo treatment 3 weeks ago. She denies urinary symptoms. She did speak with Dr. Santamaria's nurse over the telephone who did tell her to go to the emergency department for further evaluation. TRAVEL OUTSIDE OF THE [place] IN LAST 30 DAYS: No - Related Data Allergies/Adverse Reactions: No Known Allergies Allergy (Verified 03/13/19 20:46) Past Medical History - Social History Frequency of alcohol use: None Drug Abuse: None - Past Medical History Cardiac Medical History: Reports: Hx Hypertension Denies: Hx Congestive Heart Failure, Hx Coronary Artery Disease, Hx Heart Attack Pulmonary Medical History: Reports: Hx Bronchitis, Hx COPD, Hx Pneumonia - 2006 Denies: Hx Asthma, Hx Tuberculosis Neurological Medical History: Denies: Hx Cerebrovascular Accident, Hx Seizures, Hx Parkinson's Disease Renal/ Medical History: Denies: Hx End Stage Renal Disease, Hx Kidney Stones, Hx Peritoneal Dialysis GI Medical History: Denies: Hx Cirrhosis, Hx Gastroesophageal Reflux Disease, Hx Ulcer Musculoskeltal Medical History: Denies Hx Arthritis, Denies Hx Multiple Sclerosis Psychiatric Medical History: Denies: Hx Bipolar Disorder, Hx Depression, Hx Schizophrenia Past Surgical History: Reports: Hx Appendectomy. Denies: Hx Hysterectomy, Hx Pacemaker - Immunizations Hx Diphtheria, Pertussis, Tetanus Vaccination: No Physical Exam - Vital signs Vitals: Temp Pulse Resp BP Pulse Ox 98.9 F 104 H 16 126/70 H 91 L 09/04/19 12:11 09/04/19 12:11 09/04/19 12:11 09/04/19 12:11 09/04/19 12:11 - Respiratory Respiratory status: No respiratory distress Chest status: Nontender Breath sounds: Wheezing Notes: Crackles noted to the left lower lung bases and diffuse bilateral wheezing. Course - Re-evaluation Re-evalutation: 09/04/19 13:28 I have greeted and performed a rapid initial assessment of this patient. A comprehensive ED assessment and evaluation of the patient, analysis of test results and completion of the medical decision making process will be conducted by additional ED providers. - Vital Signs Vital signs: Temp Pulse Resp BP Pulse Ox 98.9 F 104 H 16 126/70 H 91 L 09/04/19 12:11 09/04/19 12:11 09/04/19 12:11 09/04/19 12:11 09/04/19 12:11 Doctor's Discharge - Discharge Referrals: NICOLE SANTAMARIA MD [Primary Care Provider] - Follow up as needed
[2019-09-04] MEDS ORDERED: NORMAL SALINE 1000 ML 1,000 ML IV ONE (14:09)
[2019-09-04] MEDS ORDERED: METHYLPREDNISOLONE INJ 40 MG/1 ML SDV IV ONE ×2 (14:09→19:00)
[2019-09-04 14:22] LABS: ABSOLUTE BASOPHILS # (AUTO) 0.1 10^3/uL (0.0-0.2); ABSOLUTE LYMPHOCYTES (AUTO) 1.3 10^3/uL (0.5-4.7); ABSOLUTE NEUT (AUTO) 13.2 10^3/uL (1.7-8.2); BASOPHILS % (AUTO) 0.3 % (0-2); HEMATOCRIT 27.6 % (36.0-47.0); HEMOGLOBIN 8.7 g/dL (12.0-15.5); LYMPHOCYTES % (AUTO) 7.7 % (13-45); MEAN CORPUSCULAR HEMOGLOBIN 24.8 pg (27.0-33.4); MEAN CORPUSCULAR HGB CONC 31.6 g/dL (32.0-36.0); MEAN CORPUSCULAR VOLUME 78 fl (80-97); PLATELET COUNT 628 10^3/uL (150-450); RED BLOOD COUNT 3.52 10^6/uL (3.72-5.28); TOTAL CELLS COUNTED % (AUTO) 100 %; WHITE BLOOD COUNT 16.6 10^3/uL (4.0-10.5)
[2019-09-04 14:42] LABS: ALBUMIN 3.3 g/dL (3.5-5.0); ALKALINE PHOSPHATASE 103 U/L (38-126); ANION GAP 13 (5-19); ASPARTATE AMINO TRANSFERASE 75 U/L (14-36); BILIRUBIN,DIRECT 0.3 mg/dL (0.0-0.4); BILIRUBIN,TOTAL 0.8 mg/dL (0.2-1.3); BLOOD UREA NITROGEN 18 mg/dL (7-20); CALCIUM 9.8 mg/dL (8.4-10.2); CARBON DIOXIDE 28 mmol/L (22-30); CHLORIDE 99 mmol/L (98-107); GLUCOSE 150 mg/dL (75-110); POTASSIUM 3.8 mmol/L (3.6-5.0); TOTAL PROTEIN 7.3 g/dL (6.3-8.2)
--- NOTE | 2019-09-04 14:43 | RADIOLOGY REPORT (SQ) ---
EXAM DESCRIPTION: CHEST 2 VIEWS COMPLETED DATE/TIME: 09/04/2019 2:33 pm REASON FOR STUDY: cough, wheezing, hx lung ca COMPARISON: 03/13/2019. EXAM PARAMETERS: NUMBER OF VIEWS: two views TECHNIQUE: Digital Frontal and Lateral radiographic views of the chest acquired. RADIATION DOSE: NA LIMITATIONS: none FINDINGS: LUNGS AND PLEURA: Mass in the right lung with opacification of the lower right hemithorax. Left lung clear. MEDIASTINUM AND HILAR STRUCTURES: No masses or contour abnormalities. HEART AND VASCULAR STRUCTURES: Heart normal size. No evidence for failure. BONES: No acute findings. HARDWARE: None in the chest. OTHER: No other significant finding. IMPRESSION: OPACIFICATION OF THE LOWER RIGHT HEMITHORAX WHICH MAY BE DUE TO PROGRESSIVE ENLARGEMENT OF THE RIGHT LUNG MASS, ATELECTASIS, AND/OR PLEURAL EFFUSION. TECHNICAL DOCUMENTATION: JOB ID: [id number] [employer]- All Rights Reserved Reading location - IP/workstation name: [email or web address]
[2019-09-04] MEDS ORDERED: ALBUTEROL SULFATE 0.083% NEB 2.5 MG/3 ML AMPUL NEB ONE (17:36)
--- NOTE | 2019-09-04 17:37 | ER Document Report ---
ED General - General Chief Complaint: General Weakness Stated Complaint: ABNORMAL LABS Time Seen by Provider: 09/04/19 13:14 Primary Care Provider: NICOLE SANTAMARIA MD [Primary Care Provider] - Follow up as needed Notes: 74-year-old female with bilateral lung cancer presents the emergency department for decreased energy and decreased oral intake for the past 5 to 6 days associated with wheezing, rhinorrhea and a productive cough. Patient denies fevers but admits chills, denies nausea vomiting or diarrhea. Patient discussed her symptoms with the nurse at Dr. Santamaria's office and he recommended that she come to the emergency department. TRAVEL OUTSIDE OF THE [place] IN LAST 30 DAYS: No - Related Data Allergies/Adverse Reactions: No Known Allergies Allergy (Verified 03/13/19 20:46) Past Medical History - General Information source: Patient - Social History Smoking Status: Former Smoker Frequency of alcohol use: None Drug Abuse: None Family History: Reviewed & Not Pertinent Patient has suicidal ideation: No Patient has homicidal ideation: No - Past Medical History Cardiac Medical History: Reports: Hx Hypertension Denies: Hx Congestive Heart Failure, Hx Coronary Artery Disease, Hx Heart Attack Pulmonary Medical History: Reports: Hx Bronchitis, Hx COPD, Hx Pneumonia - 2006 Denies: Hx Asthma, Hx Tuberculosis Neurological Medical History: Denies: Hx Cerebrovascular Accident, Hx Seizures, Hx Parkinson's Disease Renal/ Medical History: Denies: Hx End Stage Renal Disease, Hx Kidney Stones, Hx Peritoneal Dialysis GI Medical History: Denies: Hx Cirrhosis, Hx Gastroesophageal Reflux Disease, Hx Ulcer Musculoskeletal Medical History: Denies Hx Arthritis, Denies Hx Multiple Sclerosis Psychiatric Medical History: Denies: Hx Bipolar Disorder, Hx Depression, Hx Schizophrenia Past Surgical History: Reports: Hx Appendectomy. Denies: Hx Hysterectomy, Hx Pacemaker - Immunizations Hx Diphtheria, Pertussis, Tetanus Vaccination: No Hx Pneumococcal Vaccination: 09/06/11 Review of Systems - Review of Systems Constitutional: See HPI, Chills EENT: See HPI, Nose congestion Cardiovascular: No symptoms reported Respiratory: See HPI -: Yes All other systems reviewed and negative Physical Exam - Vital signs Vitals: Temp Pulse Resp BP Pulse Ox 98.9 F 104 H 16 126/70 H 91 L 09/04/19 12:11 09/04/19 12:11 09/04/19 12:11 09/04/19 12:11 09/04/19 12:11 Interpretation: Tachycardic - Notes Notes: GENERAL: Alert, interacts well. No acute distress. HEAD: Normocephalic, atraumatic EYES: Pupils equal, round and reactive to light, extraocular movements intact. ENT: Oral mucosa moist, tongue midline. NECK: Full range of motion, supple, trachea midline. LUNGS: Moderate expiratory wheezing, no tachypnea, no respiratory distress, no rales or rhonchi. Wheezing worse on the right than on the left. HEART: Regular rate and rhythm, no murmurs, gallops, rubs. ABDOMEN: Soft, nontender, nondistended, bowel sounds present in all 4 quadrants. EXTREMITIES: Moves all 4 extremities spontaneously. No cyanosis. NEUROLOGICAL: Alert and oriented x3, normal speech, no facial droop. PSYCH: Normal mood, normal affect. SKIN: Warm, Dry, normal turgor, no rashes or lesions noted. Course - Re-evaluation Re-evalutation: 09/04/19 23:07 CBC shows leukocytosis of 16.6, anemia with hemoglobin 8.7, thrombocytosis at 628, CMP shows elevated glucose at 150, AST elevated at 75 otherwise unremarkable, troponin normal, urinalysis appears contaminated, moderate leukocyte esterase, no urinary symptoms, flu a and B swabs are negative, chest x-ray shows opacification on the right which could be mass, atelectasis or pneumonia. CT scan of the chest actually shows all 3. Patient has a postobstructive pneumonia from her cancer. Discussed with Dr. Dontrell Sheridan who agrees with admission to this hospital. Discussed with Dr. Scales who agrees with mission to a medical floor. Patient will be started on Rocephin and azithromycin. Chest X-Ray 09/04/19 13:25 IMPRESSION: OPACIFICATION OF THE LOWER RIGHT HEMITHORAX WHICH MAY BE DUE TO PROGRESSIVE ENLARGEMENT OF THE RIGHT LUNG MASS, ATELECTASIS, AND/OR PLEURAL EFFUSION. Chest CT 09/04/19 17:35 IMPRESSION: Continued enlargement of large right perihilar mass which completely obstructs the right mainstem bronchus, compatible with worsening malignancy. In addition, focal hypodensity within the posterior aspect of the right main pulmonary artery could either indicate associated tumor thrombus or bland thrombus. Additional hypodensity within a left lower lobe segmental pulmonary artery is most likely artifactual given the presence of extensive motion artifact at this location. However, additional pulmonary emboli could technically have this appearance. If confirmation is desired, consider dedicated CTPA. New confluent consolidation/ground glass opacity about the remainder of the right middle lobe as well as the right lower lobe, suspicious for postobstructive pneumonia. The graft small right pleural effusion, likely malignant. Stable spiculated nodule located at the left apex, unchanged from 06/08/2019. Stable left adrenal mass, indicative of metastatic disease. TECHNICAL DOCUMENTATION: Quality ID # 436: Final reports with documentation of one or more dose reduction techniques (e.g., Automated exposure control, adjustment of the mA and/or kV according to patient size, use of iterative reconstruction technique) copyright 2011 [employer]- All Rights Reserved - Vital Signs Vital signs: Temp Pulse Resp BP Pulse Ox 98.9 F 104 H 31 H 129/68 H 94 09/04/19 12:11 09/04/19 12:11 09/04/19 18:24 09/04/19 18:24 09/04/19 18:24 - Laboratory Result Diagrams: 09/04/19 14:04 09/04/19 14:04 Laboratory results interpreted by me: 09/04/19 09/04/19 09/04/19 14:04 14:04 19:07 WBC 16.6 H RBC 3.52 L Hgb 8.7 L Hct 27.6 L MCV 78 L MCH 24.8 L MCHC 31.6 L RDW 20.0 H Plt Count 628 H Lymph % (Auto) 7.7 L Absolute Neuts (auto) 13.2 H Absolute Monos (auto) 2.0 H Seg Neutrophils % 80.0 H Glucose 150 H AST 75 H Albumin 3.3 L Urine Protein 100 H Urine Urobilinogen 4.0 H Ur Leukocyte Esterase MODERATE H Urine Ascorbic Acid 40 H - EKG Interpretation by Me Additional EKG results interpreted by me: 09/04/19 17:20 EKG shows sinus rhythm at a rate of 92, normal axis, normal intervals, rapid R wave progression, no ST segment elevations or depressions per my interpretation. Discharge - Discharge Clinical Impression: Postobstructive pneumonia Right middle lobe pneumonia Qualifiers: Pneumonia type: due to unspecified organism Qualified Code(s): J18.9 - Pneumonia, unspecified organism Right lower lobe pneumonia Qualifiers: Pneumonia type: due to unspecified organism Qualified Code(s): J18.9 - Pneumo evin, unspecified organism Lung cancer Qualifiers: Laterality: right Lung location: overlapping sites Qualified Code(s): C34.81 - Malignant neoplasm of overlapping sites of right bronchus and lung Anemia Qualifiers: Anemia type: unspecified type Qualified Code(s): D64.9 - Anemia, unspecified Condition: Fair Disposition: ADMITTED INPATIENT Admitting Provider: Yordy (Hospitalist) Unit Admitted: Medical Floor Referrals: NICOLE SANTAMARIA MD [Primary Care Provider] - Follow up as needed
--- NOTE | 2019-09-04 18:51 | EKG REPORT ---
SEVERITY:- NORMAL ECG - SINUS RHYTHM : Confirmed by: Amanuel Joya MD 04-Sep-2019 18:50:45
[2019-09-04 19:50] LABS: APPEARANCE,URINE CLOUDY; BILIRUBIN,URINE NEGATIVE (NEGATIVE); GLUCOSE, URINE NEGATIVE (NEGATIVE); KETONES,URINE NEGATIVE (NEGATIVE); LEUKOCYTE ESTERASE,URINE MODERATE (NEGATIVE); NITRITE,URINE NEGATIVE (NEGATIVE); PROTEIN,URINE 100 mg/dL (NEGATIVE); URINE SPECIFIC GRAVITY 1.026
[2019-09-04 19:55] LABS: COLOR,URINE YELLOW
--- NOTE | 2019-09-04 20:34 | RADIOLOGY REPORT (SQ) ---
EXAM DESCRIPTION: CT CHEST WITH IV CONTRAST COMPLETED DATE/TME: 09/04/2019 17:35 CLINICAL HISTORY: 74 years, Female, R sided mass vs PNA vs effusion, SOB COMPARISON: Multiple priors, most recent from 06/08/2019 TECHNIQUE: Contrast enhanced CT of the chest was acquired. Images were obtained after the uneventful administration of 100 mL of Omnipaque 350 intravenous contrast. Images stored on PACS. All CT scanners at this facility use dose modulation, iterative reconstruction, and/or weight based dosing when appropriate to reduce radiation dose to as low as reasonably achievable (ALARA). [facility]: Dose Right [facility]: CareDose [facility]: Dose Right [facility]: Teradose 4D [facility]: [employer] LIMITATIONS: None. FINDINGS: Assessment of the central airways reveals complete occlusion of the right mainstem bronchus, similar in configuration to the previous examination dated 06/08/2019. This is as a result of a large, multilobulated mass located about the right hilar region. This mass is difficult to measure given its large size though it appears substantially increased from the previous examination dated 06/08/2019. In addition, focal hypodensity is noted about the posterior aspect of the right main pulmonary artery, best visualized on image 28 of series 3, either indicating superimposed tumor or bland thrombus. Additional hypodensity within a left lower lobar segmental pulmonary artery on images 27 through 30 of series 3 could be artifactual given the presence of extensive motion artifact through this location. In addition, there is complete collapse of the right middle lobe as well as to a lesser extent partial atelectasis of the right upper and lower lobes. Confluent consolidative opacity is also noted about the right upper and lower lobes with elements of groundglass opacity. There is also a small right pleural effusion. A separate spiculated solid nodule is noted about the left apex on image 9 of series 3 measuring 0.9 x 0.9 cm in size, similar to the previous CT chest dated 06/08/2019. Remainder of the left lung is clear. Mediastinal windows show a suspected mildly enlarged left paratracheal lymph node on image 20 of series 3, similar to the previous examination. This measures approximately 1.2 x 1.7 cm in size. Remaining heart and great vessels show no additional abnormality. Limited evaluation of the upper abdomen reveals low-density lesions located about the left hepatic lobe, similar in configuration to the previous exam dated 06/08/2019. These appear to measure fluid density internally, suspicious for simple hepatic cysts. Separate fluid density lesion is noted about the upper pole of the left kidney, indicative of a simple renal cyst. Masslike enlargement of the left adrenal gland currently measures 3.9 x 1.8 mm in size in image 51 of series 3, similar to the prior. No additional suspicious findings are evident within the imaged upper abdomen. Bone windows show no destructive osseous lesions. IMPRESSION: Continued enlargement of large right perihilar mass which completely obstructs the right mainstem bronchus, compatible with worsening malignancy. In addition, focal hypodensity within the posterior aspect of the right main pulmonary artery could either indicate associated tumor thrombus or bland thrombus. Additional hypodensity within a left lower lobe segmental pulmonary artery is most likely artifactual given the presence of extensive motion artifact at this location. However, additional pulmonary emboli could technically have this appearance. If confirmation is desired, consider dedicated CTPA. New confluent consolidation/ground glass opacity about the remainder of the right middle lobe as well as the right lower lobe, suspicious for postobstructive pneumonia. The graft small right pleural effusion, likely malignant. Stable spiculated nodule located at the left apex, unchanged from 06/08/2019. Stable left adrenal mass, indicative of metastatic disease. TECHNICAL DOCUMENTATION: Quality ID # 436: Final reports with documentation of one or more dose reduction techniques (e.g., Automated exposure control, adjustment of the mA and/or kV according to patient size, use of iterative reconstruction technique) copyright 2011 [employer]- All Rights Reserved
[2019-09-04 21:08] LABS: A TYPE INFLUENZA AG NEGATIVE (NEGATIVE); B INFLUENZA AG NEGATIVE (NEGATIVE)
[2019-09-04] MEDS ORDERED: AZITHROMYCIN INJ 500 MG VIAL IV ONE (22:33)
[2019-09-04] MEDS ORDERED: CEFTRIAXONE 1 GM/D5W RTU 1 GM/50 ML RTUPB IV ONE (23:30)
[2019-09-04] MEDS ORDERED: ACETAMINOPHEN 325 MG TABLET PO PRN (23:36)
[2019-09-04] MEDS ORDERED: GUAIFENESIN SYRP 200 MG/10 ML UDC PO PRN (23:36)
[2019-09-04] MEDS ORDERED: MAGNESIUM HYDROXIDE SUSP 30 ML UDCUP PO PRN (23:43)
[2019-09-04] MEDS ORDERED: MAG HYDROX/AL HYDROX/SIMETH SUSP 30 ML UDCUP PO PRN (23:43)
[2019-09-04] MEDS ORDERED: MORPHINE SULFATE 10 MG/ML INJ IV PRN ×3 (23:43)
[2019-09-05] MEDS: IPRATROPIUM BROMIDE 0.02% NEB 0.5 MG/2.5 ML AMPUL NEB SCH ×4 (00:19→23:50)
[2019-09-05] MEDS: METHYLPREDNISOLONE INJ 40 MG/1 ML SDV IV SCH ×3 (00:19→13:22)
[2019-09-05] MEDS: LEVALBUTEROL HCL NEB 1.25 MG/3 ML AMPUL NEB SCH ×4 (00:19→23:50)
[2019-09-05] MEDS: FAMOTIDINE 20 MG TABLET PO SCH ×3 (00:19→21:21)
[2019-09-05] MEDS: HEPARIN SOD (PORCINE) 5,000 UNIT/ML 1 ML VIAL SUBCUT SCH ×3 (05:39→21:20)
[2019-09-05 06:02] LABS: HEMATOCRIT 23.8 % (36.0-47.0); MEAN CORPUSCULAR HEMOGLOBIN 25.2 pg (27.0-33.4); MEAN CORPUSCULAR HGB CONC 32.3 g/dL (32.0-36.0); MEAN CORPUSCULAR VOLUME 78 fl (80-97); PLATELET COUNT 537 10^3/uL (150-450); RED BLOOD COUNT 3.05 10^6/uL (3.72-5.28); WHITE BLOOD COUNT 16.2 10^3/uL (4.0-10.5)
[2019-09-05 06:05] LABS: HEMOGLOBIN 7.7 g/dL (12.0-15.5)
[2019-09-05 06:15] LABS: ANION GAP 11 (5-19); BLOOD UREA NITROGEN 13 mg/dL (7-20); CALCIUM 9.1 mg/dL (8.4-10.2); CARBON DIOXIDE 26 mmol/L (22-30); CHLORIDE 101 mmol/L (98-107); GLUCOSE 274 mg/dL (75-110)
--- NOTE | 2019-09-05 06:33 | PDOC H&P ---
History of Present Illness Admission Date/PCP: 09/04/2019 23:07 NICOLE ALBERTO MD Patient complains of: Cough History of Present Illness: MORA SHARMA is a 74 year old female who presents the emergency room with a 6- day history of cough. Patient and her family admit she has had a productive cough with yellowish mucus for the last 6 days. The cough has been of moderate intensity and has been accompanied by chills (without fever) and wheezing. The cough has been associated with rhinorrhea and decreased oral intake. Patient denies other associated or accompanying signs and symptoms. Patient denies prior similar episodes. She has not identified any aggravating or ameliorating factors for her cough. In the emergency room the patient was found to have a right-sided pneumonia with atelectasis and a right lung mass. She has a known history of bilateral lung cancer, and according to Dr. Alberto she has been experiencing generalized weakness and weight loss for several months. She was subsequently admitted in the hospital for further evaluation treatment. Past Medical History Cardiac Medical History: Reports: Hyperlipidema, Hypertension Denies: Congestive Heart Failure, Coronary Artery Disease, Myocardial Infarction Pulmonary Medical History: Reports: Bronchitis, Chronic Obstructive Pulmonary Disease (COPD), Pneumonia - 2006, Other - Lung cancer Denies: Asthma, Tuberculosis EENT Medical History: Denies: Cataracts, Ears - Hearing aids Neurological Medical History: Denies: Hemorrhagic CVA, Ischemic CVA, Seizures Endocrine Medical History: Denies: Diabetes Mellitus Type 1, Diabetes Mellitus Type 2, Hyperthyroidism, Hypothyroidism Renal/ Medical History: Denies: Chronic Kidney Disease, Nephrolithiasis Malignancy Medical History: Reports: Lung Cancer GI Medical History: Denies: Cirrhosis, Gastroesophageal Reflux Disease, Hepatitis Musculoskeltal Medical History: Denies: Arthritis, Gout Skin Medical History: Denies: Eczema, Psoriasis Psychiatric Medical History: Reports: Tobacco Dependency Denies: Alcohol Dependency, Bipolar Disorder, Depression, Substance Abuse Traumatic Medical History: Reports: None Hematology: Denies: Anemia, Bleeding Tendencies Infectious Medical History: Reports: None Past Surgical History Past Surgical History: Reports: Appendectomy Social History Information Source: Patient Lives with: Alone Smoking Status: Former Smoker Electronic Cigarette use?: No Frequency of Alcohol Use: None Hx Recreational Drug Use: No Drugs: None Hx Prescription Drug Abuse: No - Advance Directive Resuscitation Status: Full Code Surrogate healthcare decision maker:: Rowena Medrano Family History Family History: Hypertension. denies: CAD, DM, Malignancy Parental Family History Reviewed: Yes Children Family History Reviewed: No Sibling(s) Family History Reviewed.: Yes Medication/Allergy Home Medications: Amlodipine Besylate [Norvasc] 10 mg PO DAILY 04/18/14 Ca Cmb No.1/Vit D3/B-6/FA/B12 [Vitamin D3 1,000 Unit Tablet] 2,000 units PO DAILY 04/18/14 Naproxen [Naprosyn 250 mg Tablet] 250 mg PO Q12 PRN #30 tablet 03/13/15 Doxycycline Hyclate 100 mg PO BID #14 capsule 03/14/19 Allergies/Adverse Reactions: No Known Allergies Allergy (Verified 03/13/19 20:46) Review of Systems Constitutional: PRESENT: as per HPI, anorexia, chills, weakness, weight loss. ABSENT: fever(s) Eyes: ABSENT: visual disturbances, other - Eye pain Ears: ABSENT: hearing changes, other - Ear pain Nose, Mouth, and Throat: ABSENT: headache(s), mouth pain, sore throat Cardiovascular: ABSENT: chest pain, palpitations Respiratory: PRESENT: as per HPI, cough, sputum, other - Wheezing. ABSENT: dyspnea, hemoptysis Gastrointestinal: ABSENT: abdominal pain, constipation, diarrhea, nausea, vomiting Genitourinary: ABSENT: dysuria, hematuria Musculoskeletal: ABSENT: back pain, joint swelling, muscle weakness Integumentary: ABSENT: pruritus, rash Neurological: ABSENT: confusion, convulsions, focal weakness, memory loss, syncope Psychiatric: ABSENT: anxiety, depression Endocrine: ABSENT: cold intolerance, heat intolerance Hematologic/Lymphatic: ABSENT: easy bleeding, easy bruising Allergic/Immunologic: ABSENT: seasonal rhinorrhea Physical Exam Vital Signs: Temp Pulse Resp BP Pulse Ox 98.9 F 104 H 31 H 129/68 H 94 09/04/19 12:11 09/04/19 12:11 09/04/19 18:24 09/04/19 18:24 09/04/19 18:24 Intake & Output 09/02/19 09/03/19 09/04/19 23:59 23:59 23:59 Intake Total 1000 Balance 1000 Weight 66.7 kg General appearance: PRESENT: no acute distress, cooperative Head exam: PRESENT: atraumatic, normocephalic Eye exam: PRESENT: conjunctiva pink. ABSENT: conjunctival injection, scleral icterus Ear exam: PRESENT: normal external ear exam. ABSENT: bleeding, drainage Mouth exam: PRESENT: dry mucosa, neck supple Neck exam: ABSENT: thyromegaly, tracheal deviation Respiratory exam: PRESENT: decreased breath sounds - Decreased breath sounds in the right lower lung springer, prolonged expiratory phas - Minimally prolonged respiratory phase present throughout all springer, rales - Coarse rales noted thr oughout right lower lung springer, rhonchi - Coarse rhonchi noted throughout right lower lung field, symmetrical, wheezes - Mild expiratory wheezes present throughout all springer Cardiovascular exam: PRESENT: RRR. ABSENT: clicks, gallop, rubs Pulses: PRESENT: normal radial pulses, normal dorsalis pedis pul Vascular exam: PRESENT: normal capillary refill. ABSENT: pallor GI/Abdominal exam: PRESENT: normal bowel sounds, soft Rectal exam: PRESENT: deferred Extremities exam: ABSENT: joint swelling, pedal edema Musculoskeletal exam: ABSENT: deformity, dislocation Neurological exam: PRESENT: alert, oriented to person, oriented to place, oriented to time, oriented to situation, CN II-XII grossly intact. ABSENT: motor sensory deficit Psychiatric exam: PRESENT: appropriate affect, normal mood Skin exam: PRESENT: dry, intact, warm. ABSENT: jaundice, rash, urticaria Results Laboratory Results: 09/04/19 14:04 09/04/19 14:04 09/04/19 09/04/19 09/04/19 14:04 14:04 19:07 WBC 16.6 H RBC 3.52 L Hgb 8.7 L Hct 27.6 L MCV 78 L MCH 24.8 L MCHC 31.6 L RDW 20.0 H Plt Count 628 H Seg Neutrophils % 80.0 H Sodium 140.2 Potassium 3.8 Chloride 99 Carbon Dioxide 28 Anion Gap 13 BUN 18 Creatinine 0.64 Est GFR ( Amer) > 60 Glucose 150 H Calcium 9.8 Total Bilirubin 0.8 AST 75 H Alkaline Phosphatase 103 Total Protein 7.3 Albumin 3.3 L Urine Color YELLOW Urine Appearance CLOUDY Urine pH 5.0 Ur Specific [place] 1.026 Urine Protein 100 H Urine Glucose (UA) NEGATIVE Urine Ketones NEGATIVE Urine Blood NEGATIVE Urine Nitrite NEGATIVE Ur Leukocyte Esterase MODERATE H Urine WBC (Auto) 28 Urine RBC (Auto) 4 09/04/19 14:04 Troponin I < 0.012 Impressions: Chest X-Ray 09/04/19 13:25 IMPRESSION: OPACIFICATION OF THE LOWER RIGHT HEMITHORAX WHICH MAY BE DUE TO PROGRESSIVE ENLARGEMENT OF THE RIGHT LUNG MASS, ATELECTASIS, AND/OR PLEURAL EFFUSION. Chest CT 09/04/19 17:35 IMPRESSION: Continued enlargement of large right perihilar mass which completely obstructs the right mainstem bronchus, compatible with worsening malignancy. In addition, focal hypodensity within the posterior aspect of the right main pulmonary artery could either indicate associated tumor thrombus or bland thrombus. Additional hypodensity within a left lower lobe segmental pulmonary artery is most likely artifactual given the presence of extensive motion artifact at this location. However, additional pulmonary emboli could technically have this appearance. If confirmation is desired, consider dedicated CTPA. New confluent consolidation/ground glass opacity about the remainder of the right middle lobe as well as the right lower lobe, suspicious for postobstructive pneumonia. The graft small right pleural effusion, likely malignant. Stable spiculated nodule located at the left apex, unchanged from 06/08/2019. Stable left adrenal mass, indicative of metastatic disease. TECHNICAL DOCUMENTATION: Quality ID # 436: Final reports with documentation of one or more dose reduction techniques (e.g., Automated exposure control, adjustment of the mA and/or kV according to patient size, use of iterative reconstruction technique) copyright 2011 [employer]- All Rights Reserved Assessment and Plan - Diagnosis (1) Pneumonia involving right lung Qualifiers: Pneumonia type: due to unspecified organism Lung location: unspecified part of lung Qualified Code(s): J18.9 - Pneumonia, unspecified organism Is this a current diagnosis for this admission?: Yes (2) Mass of right lung Is this a current diagnosis for this admission?: Yes (3) History of primary malignant neoplasm of lung Is this a current diagnosis for this admission?: Yes (4) Hypertension Qualifiers: Hypertension type: essential hypertension Qualified Code(s): I10 - Essential (primary) hypertension Is this a current diagnosis for this admission?: Yes (5) Hyperlipidemia Qualifiers: Hyperlipidemia type: unspecified Qualified Code(s): E78.5 - Hyperlipidemia, unspecified Is this a current diagnosis for this admission?: Yes (6) Anemia of chronic disease Is this a current diagnosis for this admission?: Yes (7) Hyperglycemia Is this a current diagnosis for this admission?: Yes - Plan Summary Summary: Patient will be admitted to the medical floor where she will receive routine supportive and symptomatic cares. IV antibiotics using Rocephin and Zithromax. To receive a pulmonary toilet utilizing Xopenex, Atrovent and Mucomyst delivered via nebulizer. She will receive IV fluids at maintenance levels as required until her oral intake improves. Dr. Alberto will be consulted for oncology. She will receive morphine sulfate 2 to 4 mg IV every 2 hours on as-needed basis for pain. Her usual home medications will be resumed as soon as her medication list has been verified and reconciled. - Time Time Spent with patient: 15-24 minutes Medications reviewed and adjusted accordingly: Yes Anticipated discharge: Home with Homehealth - Inpatient Certification Based on my medical assessment, after consideration of the patient's comorbidities, presenting symptoms, or acuity I expect that the services needed warrant INPATIENT care.: Yes I certify that my determination is in accordance with my understanding of Medicare's requirements for reasonable and necessary INPATIENT services [42 CFR 412.3e].: Yes Medical Necessity: Significant Comorbidiites Make Outpatient Treatment Too Risky, Need For IV Fluids, Need for Nebulizer Therapy and Monitoring of Response, Need for IV Antibiotics, Risk of Complication if Not Cared For in Hospital
--- NOTE | 2019-09-05 08:40 | PDOC CONSULTATION ---
Consultation Consult Date: 09/05/19 Attending physician:: MART KING Provider Consulted: NICOLE SANTAMARIA Consult reason:: Hypoxia, fevers, weakness, pneumonia in the setting of stage IV lung cancer History of Present Illness Admission Date/PCP: 09/04/19 23:55 NICOLE SANTAMARIA MD Patient complains of: Weakness, lethargy History of Present Illness: MORA SHARMA is a 74 year old female with now nearly 4-year history of stage IV lung cancer with multifocal disease in the lung, not much of distant disease to this point. Most recently was on fourth line chemotherapy with Gemzar. She was actually tolerating the treatment well but over the last 6 weeks had been losing weight, and her respiratory status was slowly worsening. Restaging im aging was planned in the next week, but her daughter called and noted that she was very lethargic for 2 days prior to admission, not getting out of her chair, and was getting less responsive. We instructed them to bring her into the ER. Upon admission, CT was done, chest CT indicated worsening of disease in the left lung which was to be expected. Had a code discussion with the patient and she i s a DNI but would want CPR if needed. She looks much better today than what was described yesterday. Past Medical History Cardiac Medical History: Reports: Hyperlipidema, Hypertension Denies: Congestive Heart Failure, Coronary Artery Disease, Myocardial Inf arction Pulmonary Medical History: Reports: Bronchitis, Chronic Obstructive Pulmonary Disease (COPD), Pneumonia - 2006, Other - Lung cancer Denies: Asthma, Tuberculosis EENT Medical History: Denies: Cataracts, Ears - Hearing aids Neurological Medical History: Denies: Hemorrhagic CVA, Ischemic CVA, Seizures Endocrine Medical History: Denies: Diabetes Mellitus Type 1, Diabetes Mellitus Type 2, Hyperthyroidism, Hypothyroidism Renal/ Medical History: Denies: Chronic Kidney Disease, End Stage Renal Disease, Nephrolithiasis Malignancy Medical History: Reports: Lung Cancer GI Medical History: Denies: Cirrhosis, Gastroesophageal Reflux Disease, Hepatitis Musculoskeltal Medical History: Denies: Arthritis, Gout Skin Medical History: Denies: Eczema, Psoriasis Psychiatric Medical History: Reports: Tobacco Dependency Denies: Alcohol Dependency, Bipolar Disorder, Depression, Substance Abuse Traumatic Medical History: Reports: None Hematology: Denies: Anemia, Bleeding Tendencies Infectious Medical History: Reports: None Past Surgical History Past Surgical History: Reports: Appendectomy Denies: Hysterectomy, Pacemaker Social History Information Source: Patient Lives with: Alone Smoking Status: Former Smoker Electronic Cigarette use?: No Frequency of Alcohol Use: None Hx Recreational Drug Use: No Drugs: None Hx Prescription Drug Abuse: No - Advance Directive Resuscitation Status: Do Not Intubate Family History Family History: Hypertension. denies: CAD, DM, Malignancy Parental Family History Reviewed: Yes Children Family History Reviewed: Yes Sibling(s) Family History Reviewed.: Yes Medication/Allergy Allergies/Adverse Reactions: No Known Allergies Allergy (Verified 03/13/19 20:46) Review of Systems Constitutional: ABSENT: chills, fever(s), headache(s), weight gain, weight loss Eyes: ABSENT: visual disturbances Ears: ABSENT: hearing changes Cardiovascular: ABSENT: chest pain, dyspnea on exertion, edema, orthropnea, palpitations Respiratory: ABSENT: cough, hemoptysis Gastrointestinal: ABSENT: abdominal pain, constipation, diarrhea, hematemesis, hematochezia, nausea, vomiting Genitourinary: ABSENT: dysuria, hematuria Musculoskeletal: ABSENT: joint swelling Integumentary: ABSENT: rash, wounds Neurological: ABSENT: abnormal gait, abnormal speech, confusion, dizziness, focal weakness, syncope Psychiatric: ABSENT: anxiety, depression, homidical ideation, suicidal ideation Endocrine: ABSENT: cold intolerance, heat intolerance, polydipsia, polyuria Hematologic/Lymphatic: ABSENT: easy bleeding, easy bruising Physical Exam Vital Signs: Temp Pulse Resp BP Pulse Ox 98.9 F 104 H 21 H 117/68 98 09/04/19 12:11 09/04/19 12:11 09/05/19 07:24 09/05/19 07:24 09/05/19 07:24 Intake & Output 09/04/19 09/05/19 09/06/19 06:59 06:59 06:59 Intake Total 1050 Balance 1050 Weight 66.7 kg General appearance: PRESENT: no acute distress, well-developed, well-nourished Head exam: PRESENT: atraumatic, normocephalic Eye exam: PRESENT: conjunctiva pink, EOMI, PERRLA. ABSENT: scleral icterus Ear exam: PRESENT: normal external ear exam Mouth exam: PRESENT: moist, tongue midline Neck exam: ABSENT: carotid bruit, JVD, lymphadenopathy, thyromegaly Respiratory exam: PRESENT: clear to auscultation ella. ABSENT: rales, rhonchi, wheezes Cardiovascular exam: PRESENT: RRR. ABSENT: diastolic murmur, rubs, systolic murmur Pulses: PRESENT: normal dorsalis pedis pul Vascular exam: PRESENT: normal capillary refill GI/Abdominal exam: PRESENT: normal bowel sounds, soft. ABSENT: distended, guarding, mass, organolmegaly, rebound, tenderness Rectal exam: PRESENT: deferred Extremities exam: PRESENT: full ROM. ABSENT: calf tenderness, clubbing, pedal edema Neurological exam: PRESENT: alert, awake, oriented to person, oriented to place, oriented to time, oriented to situation, CN II-XII grossly intact. ABSENT: motor sensory deficit Psychiatric exam: PRESENT: appropriate affect, normal mood. ABSENT: homicidal ideation, suicidal ideation Skin exam: PRESENT: dry, intact, warm. ABSENT: cyanosis, rash Results Laboratory Results: 09/05/19 05:40 09/05/19 05:40 09/04/19 09/04/19 09/04/19 14:04 14:04 19:07 WBC 16.6 H RBC 3.52 L Hgb 8.7 L Hct 27.6 L MCV 78 L MCH 24.8 L MCHC 31.6 L RDW 20.0 H Plt Count 628 H Seg Neutrophils % 80.0 H Sodium 140.2 Potassium 3.8 Chloride 99 Carbon Dioxide 28 Anion Gap 13 BUN 18 Creatinine 0.64 Est GFR ( Amer) > 60 Glucose 150 H Calcium 9.8 Total Bilirubin 0.8 AST 75 H Alkaline Phosphatase 103 Total Protein 7.3 Albumin 3.3 L Urine Color YELLOW Urine Appearance CLOUDY Urine pH 5.0 Ur Specific [place] 1.026 Urine Protein 100 H Urine Glucose (UA) NEGATIVE Urine Ketones NEGATIVE Urine Blood NEGATIVE Urine Nitrite NEGATIVE Ur Leukocyte Esterase MODERATE H Urine WBC (Auto) 28 Urine RBC (Auto) 4 09/05/19 09/05/19 05:40 05:40 WBC 16.2 H RBC 3.05 L Hgb 7.7 L Hct 23.8 L MCV 78 L MCH 25.2 L MCHC 32.3 RDW 20.0 H Plt Count 537 H Seg Neutrophils % Sodium 137.6 Potassium 4.0 Chloride 101 Carbon Dioxide 26 Anion Gap 11 BUN 13 Creatinine 0.49 L Est GFR ( Amer) > 60 Glucose 274 H Calcium 9.1 Total Bilirubin AST Alkaline Phosphatase Total Protein Albumin Urine Color Urine Appearance Urine pH Ur Specific [place] Urine Protein Urine Glucose (UA) Urine Ketones Urine Blood Urine Nitrite Ur Leukocyte Esterase Urine WBC (Auto) Urine RBC (Auto) 09/04/19 14:04 Troponin I < 0.012 Impressions: Chest X-Ray 09/04/19 13:25 IMPRESSION: OPACIFICATION OF THE LOWER RIGHT HEMITHORAX WHICH MAY BE DUE TO PROGRESSIVE ENLARGEMENT OF THE RIGHT LUNG MASS, ATELECTASIS, AND/OR PLEURAL EFFUSION. Chest CT 09/04/19 17:35 IMPRESSION: Continued enlargement of large right perihilar mass which completely obstructs the right mainstem bronchus, compatible with worsening malignancy. In addition, focal hypodensity within the posterior aspect of the right main pulmonary artery could either indicate associated tumor thrombus or bland thrombus. Additional hypodensity within a left lower lobe segmental pulmonary artery is most likely artifactual given the presence of extensive motion artifact at this location. However, additional pulmonary emboli could technically have this appearance. If confirmation is desired, consider dedicated CTPA. New confluent consolidation/ground glass opacity about the remainder of the right middle lobe as well as the right lower lobe, suspicious for postobstructive pneumonia. The graft small right pleural effusion, likely malignant. Stable spiculated nodule located at the left apex, unchanged from 06/08/2019. Stable left adrenal mass, indicative of metastatic disease. TECHNICAL DOCUMENTATION: Quality ID # 436: Final reports with documentation of one or more dose reduction techniques (e.g., Automated exposure control, adjustment of the mA and/or kV according to patient size, use of iterative reconstruction technique) copyright 2011 [employer]- All Rights Reserved Status: Image reviewed by fl Assessment & Plan - Diagnosis (1) Pneumonia involving right lung Qualifiers: Pneumonia type: due to unspecified organism Lung location: middle lobe of lung Qualified Code(s): J18.9 - Pneumonia, unspecified organism Is this a current diagnosis for this admission?: Yes Plan: Right side of lung is the only one that is truly aerating, but it does appear to have a pneumonia component, agree with antibiotics. Continue per hospitalist team. (2) Anemia of chronic disease Is this a current diagnosis for this admission?: Yes Plan: Anemia of both chemotherapy as well as chronic disease, hemoglobin is in the 7 range, she looks good today I think we can hold on transfusion for another day. (3) Cancer of middle lobe of lung Is this a current diagnosis for this admission?: Yes Plan: We will discuss further treatment options as an outpatient. - Time Time Spent: Greater than 70 Minutes - Inpatient Certification Based on my medical assessment, after consideration of the patient's comorbidities, presenting symptoms, or acuity I expect that the services needed warrant INPATIENT care.: Yes I certify that my determination is in accordance with my understanding of Medicare's requirements for reasonable and necessary INPATIENT services [42 CFR 412.3e].: Yes Medical Necessity: Risk of Complication if Not Cared For in Hospital
[2019-09-05] MEDS: ACETYLCYSTEINE 20% SOLN 800 MG/4 ML VIAL.NEB NEB SCH ×2 (08:41→20:47)
[2019-09-05] MEDS ORDERED: AZITHROMYCIN 500 MG in DEXTROSE 5%-WATER 250 ML IV SCH (10:00)
[2019-09-05] MEDS: DOCUSATE SODIUM 100 MG CAPSULE PO SCH ×2 (10:39→18:43)
--- NOTE | 2019-09-05 17:58 | PDOC PROGRESS REPORT ---
Subjective Progress Note for:: 09/05/19 Subjective:: This is a 74 year old female with now nearly 4-year history of stage IV lung cancer with multifocal disease in the lung getting chemotherapy who presented with lethargy. She was found to have worsening right lung opacities likely postobstructive pneumonia. She was started on azithromycin and Rocephin. Upon encounter, she appears comfortable. She is on room air at the moment. She says that she has mild shortness of breath but she feels it is improving. She denies chest pain. Reason For Visit: RIGHT LUNG PNEUMONIA,RIGHT LUNG MASS Physical Exam Vital Signs: Temp Pulse Resp BP Pulse Ox 97.7 F 104 H 18 137/65 H 98 09/05/19 09:06 09/04/19 12:11 09/05/19 13:02 09/05/19 13:02 09/05/19 13:02 Pulse Oximeter Continuous Start: 09/04/19 23:36 Freq: RTQ4 Status: Active Protocol: Document 09/05/19 12:00 [facility] (Rec: 09/05/19 13:12 [facility] [id number]) Pulse Oximetry Assessment Oxygen Saturation (92-100) 100 Oxygen Delivery Method Room Air Fraction of Inspired Oxygen (FIO2) 21 Equipment Usage Equipment Standby Continuous SpO2 Machine # -- Intake & Output 09/04/19 09/05/19 09/06/19 06:59 06:59 06:59 Intake Total 1050 250 Balance 1050 250 Weight 147 lb 0.773 oz General appearance: PRESENT: no acute distress, well-developed, well-nourished Head exam: PRESENT: atraumatic, normocephalic Eye exam: PRESENT: conjunctiva pink, EOMI, PERRLA. ABSENT: scleral icterus Ear exam: PRESENT: normal external ear exam Mouth exam: PRESENT: moist, tongue midline Neck exam: ABSENT: carotid bruit, JVD, lymphadenopathy, thyromegaly Respiratory exam: PRESENT: rales, rhonchi. ABSENT: wheezes Cardiovascular exam: PRESENT: RRR. ABSENT: diastolic murmur, rubs, systolic murmur Pulses: PRESENT: normal dorsalis pedis pul GI/Abdominal exam: PRESENT: normal bowel sounds, soft. ABSENT: distended, guarding, mass, organolmegaly, rebound, tenderness Rectal exam: PRESENT: deferred Extremities exam: PRESENT: full ROM. ABSENT: calf tenderness, clubbing, pedal edema Neurological exam: PRESENT: alert, awake, oriented to person, oriented to place, oriented to time, oriented to situation, CN II-XII grossly intact. ABSENT: motor sensory deficit Results Laboratory Results: 09/05/19 05:40 09/05/19 05:40 09/04/19 09/05/19 09/05/19 19:07 05:40 05:40 WBC 16.2 H RBC 3.05 L Hgb 7.7 L Hct 23.8 L MCV 78 L MCH 25.2 L MCHC 32.3 RDW 20.0 H Plt Count 537 H Sodium 137.6 Potassium 4.0 Chloride 101 Carbon Dioxide 26 Anion Gap 11 BUN 13 Creatinine 0.49 L Est GFR ( Amer) > 60 Glucose 274 H Calcium 9.1 Urine Color YELLOW Urine Appearance CLOUDY Urine pH 5.0 Ur Specific [place] 1.026 Urine Protein 100 H Urine Glucose (UA) NEGATIVE Urine Ketones NEGATIVE Urine Blood NEGATIVE Urine Nitrite NEGATIVE Ur Leukocyte Esterase MODERATE H Urine WBC (Auto) 28 Urine RBC (Auto) 4 09/04/19 14:04 Troponin I < 0.012 Impressions: Chest X-Ray 09/04/19 13:25 IMPRESSION: OPACIFICATION OF THE LOWER RIGHT HEMITHORAX WHICH MAY BE DUE TO PROGRESSIVE ENLARGEMENT OF THE RIGHT LUNG MASS, ATELECTASIS, AND/OR PLEURAL EFFUSION. Chest CT 09/04/19 17:35 IMPRESSION: Continued enlargement of large right perihilar mass which completely obstructs the right mainstem bronchus, compatible with worsening malignancy. In addition, focal hypodensity within the posterior aspect of the right main pulmonary artery could either indicate associated tumor thrombus or bland thrombus. Additional hypodensity within a left lower lobe segmental pulmonary artery is most likely artifactual given the presence of extensive motion artifact at this location. However, additional pulmonary emboli could technically have this appearance. If confirmation is desired, consider dedicated CTPA. New confluent consolidation/ground glass opacity about the remainder of the right middle lobe as well as the right lower lobe, suspicious for postobstructive pneumonia. The graft small right pleural effusion, likely malignant. Stable spiculated nodule located at the left apex, unchanged from 06/08/2019. Stable left adrenal mass, indicative of metastatic disease. TECHNICAL DOCUMENTATION: Quality ID # 436: Final reports with documentation of one or more dose reduction techniques (e.g., Automated exposure control, adjustment of the mA and/or kV according to patient size, use of iterative reconstruction technique) copyright 2011 [employer]- All Rights Reserved Assessment and Plan - Diagnosis (1) Pneumonia involving right lung Qualifiers: Pneumonia type: due to unspecified organism Lung location: middle lobe of lung Qualified Code(s): J18.9 - Pneumonia, unspecified organism Is this a current diagnosis for this admission?: Yes Plan: Likely postobstructive in nature from right lung mass. Will revise antibiotics and will treat this as HCAP as she is also getting chemotherapy. Switch antibiotics to cefepime and vancomycin for now. Will obtain sputum culture. (2) Mass of right lung Is this a current diagnosis for this admission?: Yes Plan: Oncology following. - Plan Summary Summary: Patient will be admitted to the medical floor where she will receive routine supportive and symptomatic cares. IV antibiotics using Rocephin and Zithromax. To receive a pulmonary toilet utilizing Xopenex, Atrovent and Mucomyst delivered via nebulizer. She will receive IV fluids at maintenance levels as required until her oral intake improves. Dr. Alberto will be consulted for oncology. She will receive morphine sulfate 2 to 4 mg IV every 2 hours on as-needed basis for pain. Her usual home medications will be resumed as soon as her medication list has been verified and reconciled. - Time Time Spent with patient: 25-34 minutes
[2019-09-05] MEDS ORDERED: VANCOMYCIN HCL 0 MG in DEXTROSE 5%-WATER 250 ML IV NR (18:00)
[2019-09-05] MEDS: RINGERS SOLUTION,LACTATED 1,000 ML IV PRN (20:04)
[2019-09-05] MEDS: LEVALBUTEROL HCL NEB 0.63 MG/3 ML AMPUL NEB PRN (20:47)
[2019-09-05] MEDS: CEFEPIME 1 GM/D5W RTU 1 GM/50 ML RTUPB IV SCH (21:14)
[2019-09-05] MEDS ORDERED: CEFTRIAXONE 1 GM/D5W RTU 1 GM/50 ML RTUPB IV SCH (22:00)
[2019-09-05] MEDS: VANCOMYCIN HCL 1,000 MG in DEXTROSE 5%-WATER 250 ML IV SCH (22:31)
[2019-09-06] MEDS: HEPARIN SOD (PORCINE) 5,000 UNIT/ML 1 ML VIAL SUBCUT SCH ×3 (05:33→22:18)
[2019-09-06 07:20] LABS: HEMATOCRIT 23.7 % (36.0-47.0); MEAN CORPUSCULAR HEMOGLOBIN 24.9 pg (27.0-33.4); MEAN CORPUSCULAR HGB CONC 32.4 g/dL (32.0-36.0); MEAN CORPUSCULAR VOLUME 77 fl (80-97); PLATELET COUNT 519 10^3/uL (150-450); RED BLOOD COUNT 3.09 10^6/uL (3.72-5.28); RED CELL DISTRIBUTION WIDTH 19.8 % (11.5-14.0); WHITE BLOOD COUNT 19.9 10^3/uL (4.0-10.5)
[2019-09-06 07:27] LABS: HEMOGLOBIN 7.7 g/dL (12.0-15.5)
[2019-09-06] MEDS: IPRATROPIUM BROMIDE 0.02% NEB 0.5 MG/2.5 ML AMPUL NEB SCH ×2 (07:50→15:59)
[2019-09-06] MEDS: ACETYLCYSTEINE 20% SOLN 800 MG/4 ML VIAL.NEB NEB SCH ×2 (07:50→20:31)
[2019-09-06] MEDS: LEVALBUTEROL HCL NEB 1.25 MG/3 ML AMPUL NEB SCH ×2 (07:50→15:59)
[2019-09-06] MEDS: CEFEPIME 1 GM/D5W RTU 1 GM/50 ML RTUPB IV SCH ×2 (11:05→21:45)
[2019-09-06] MEDS: DOCUSATE SODIUM 100 MG CAPSULE PO SCH ×2 (11:05→18:12)
[2019-09-06] MEDS: FAMOTIDINE 20 MG TABLET PO SCH ×2 (11:05→22:22)
[2019-09-06] MEDS: VANCOMYCIN HCL 1,000 MG in DEXTROSE 5%-WATER 250 ML IV SCH ×2 (11:53→22:24)
--- NOTE | 2019-09-06 16:25 | PDOC PROGRESS REPORT ---
Subjective Progress Note for:: 09/06/19 Subjective:: This is a 74 year old female with now nearly 4-year history of stage IV lung cancer with multifocal disease in the lung getting chemotherapy who presented with lethargy. She was found to have worsening right lung opacities likely postobstructive pneumonia. She was started on azithromycin and Rocephin. 09/05: Upon encounter, she appears comfortable. She is on room air at the moment. She says that she has mild shortness of breath but she feels it is improving. She denies chest pain. 09/06: No acute event overnight. She says she continues to feel better and her shortness of breath continued to improve. Denies chest pain. Denies any other acute complaint. Sputum culture pending. Reason For Visit: RIGHT LUNG PNEUMONIA,RIGHT LUNG MASS Physical Exam Vital Signs: Temp Pulse Resp BP Pulse Ox 97.8 F 70 18 125/68 97 09/06/19 08:29 09/06/19 08:29 09/06/19 08:29 09/06/19 08:29 09/06/19 12:00 Pulse Oximeter Continuous Start: 09/04/19 23:36 Freq: RTQ4 Status: Active Protocol: Document 09/06/19 12:00 J (Rec: 09/06/19 13:50 [facility] [id number]) Pulse Oximetry Assessment Oxygen Saturation (92-100) 97 Oxygen Delivery Method Room Air Fraction of Inspired Oxygen (FIO2) 21 Equipment Usage Equipment in Use Continuous SpO2 Machine # 9 Intake & Output 09/05/19 09/06/19 09/07/19 06:59 06:59 06:59 Intake Total 1050 1950 1420 Balance 1050 1950 1420 Weight 147 lb 0.773 oz 147 lb 0.773 oz General appearance: PRESENT: no acute distress, well-developed, well-nourished Head exam: PRESENT: atraumatic, normocephalic Eye exam: PRESENT: conjunctiva pink, EOMI, PERRLA. ABSENT: scleral icterus Ear exam: PRESENT: normal external ear exam Mouth exam: PRESENT: moist, tongue midline Neck exam: ABSENT: carotid bruit, JVD, lymphadenopathy, thyromegaly Respiratory exam: PRESENT: rales, rhonchi. ABSENT: wheezes Cardiovascular exam: PRESENT: RRR. ABSENT: diastolic murmur, rubs, systolic murmur Pulses: PRESENT: normal dorsalis pedis pul GI/Abdominal exam: PRESENT: normal bowel sounds, soft. ABSENT: distended, guarding, mass, organolmegaly, rebound, tenderness Rectal exam: PRESENT: deferred Extremities exam: PRESENT: full ROM. ABSENT: calf tenderness, clubbing, pedal edema Neurological exam: PRESENT: alert, awake, oriented to person, oriented to place, oriented to time, oriented to situation, CN II-XII grossly intact. ABSENT: motor sensory deficit Results Laboratory Results: 09/06/19 06:46 09/05/19 05:40 09/06/19 06:46 WBC 19.9 H RBC 3.09 L Hgb 7.7 L Hct 23.7 L MCV 77 L MCH 24.9 L MCHC 32.4 RDW 19.8 H Plt Count 519 H 09/04/19 19:07 Clean Catch Midstream Urine Culture - Final Mixed Urogenital Brittani 09/04/19 14:04 Troponin I < 0.012 Impressions: Chest X-Ray 09/04/19 13:25 IMPRESSION: OPACIFICATION OF THE LOWER RIGHT HEMITHORAX WHICH MAY BE DUE TO PROGRESSIVE ENLARGEMENT OF THE RIGHT LUNG MASS, ATELECTASIS, AND/OR PLEURAL EFFUSION. Chest CT 09/04/19 17:35 IMPRESSION: Continued enlargement of large right perihilar mass which completely obstructs the right mainstem bronchus, compatible with worsening malignancy. In addition, focal hypodensity within the posterior aspect of the right main pulmonary artery could either indicate associated tumor thrombus or bland thrombus. Additional hypodensity within a left lower lobe segmental pulmonary artery is most likely artifactual given the presence of extensive motion artifact at this location. However, additional pulmonary emboli could technically have this appearance. If confirmation is desired, consider dedicated CTPA. New confluent consolidation/ground glass opacity about the remainder of the right middle lobe as well as the right lower lobe, suspicious for postobstructive pneumonia. The graft small right pleural effusion, likely malignant. Stable spiculated nodule located at the left apex, unchanged from 06/08/2019. Stable left adrenal mass, indicative of metastatic disease. TECHNICAL DOCUMENTATION: Quality ID # 436: Final reports with documentation of one or more dose reduction techniques (e.g., Automated exposure control, adjustment of the mA and/or kV according to patient size, use of iterative reconstruction technique) copyright 2011 [employer]- All Rights Reserved Assessment and Plan - Diagnosis (1) Pneumonia involving right lung Qualifiers: Pneumonia type: due to unspecified organism Lung location: middle lobe of lung Qualified Code(s): J18.9 - Pneumonia, unspecified organism Is this a current diagnosis for this admission?: Yes Plan: 09/05: Likely postobstructive in nature from right lung mass. Will revise antibiotics and will treat this as HCAP as she is also getting chemotherapy. Switch antibiotics to cefepime and vancomycin for now. Will obtain sputum culture. 09/06: Continue IV antibiotics. Sputum culture pending. (2) Mass of right lung Is this a current diagnosis for this admission?: Yes Plan: Oncology following. - Plan Summary Summary: Patient will be admitted to the medical floor where she will receive routine supportive and symptomatic cares. IV antibiotics using Rocephin and Zithromax. To receive a pulmonary toilet utilizing Xopenex, Atrovent and Mucomyst delivered via nebulizer. She will receive IV fluids at maintenance levels as required until her oral intake improves. Dr. Alberto will be consulted for oncology. She will receive morphine sulfate 2 to 4 mg IV every 2 hours on as-needed basis for pain. Her usual home medications will be resumed as soon as her medication list has been verified and reconciled. - Time Time Spent with patient: 25-34 minutes
[2019-09-06] MEDS: PREDNISONE 10 MG TABLET PO SCH (18:12)
[2019-09-06] MEDS: LEVALBUTEROL HCL NEB 0.63 MG/3 ML AMPUL NEB PRN (20:31)
[2019-09-06] MEDS: RINGERS SOLUTION,LACTATED 1,000 ML IV PRN (22:25)
[2019-09-07] MEDS: IPRATROPIUM BROMIDE 0.02% NEB 0.5 MG/2.5 ML AMPUL NEB SCH ×3 (00:53→15:37)
[2019-09-07] MEDS: LEVALBUTEROL HCL NEB 1.25 MG/3 ML AMPUL NEB SCH ×3 (00:54→15:37)
[2019-09-07] MEDS: HEPARIN SOD (PORCINE) 5,000 UNIT/ML 1 ML VIAL SUBCUT SCH ×3 (05:07→22:24)
[2019-09-07 05:59] LABS: HEMATOCRIT 21.8 % (36.0-47.0); MEAN CORPUSCULAR HEMOGLOBIN 24.7 pg (27.0-33.4); MEAN CORPUSCULAR HGB CONC 32.2 g/dL (32.0-36.0); MEAN CORPUSCULAR VOLUME 77 fl (80-97); PLATELET COUNT 505 10^3/uL (150-450); RED BLOOD COUNT 2.85 10^6/uL (3.72-5.28); RED CELL DISTRIBUTION WIDTH 19.9 % (11.5-14.0); WHITE BLOOD COUNT 17.3 10^3/uL (4.0-10.5)
[2019-09-07] MEDS: ACETYLCYSTEINE 20% SOLN 800 MG/4 ML VIAL.NEB NEB SCH ×2 (08:07→20:31)
[2019-09-07] MEDS ORDERED: DIPHENHYDRAMINE HCL 25 MG CAPSULE PO PRN (08:35)
[2019-09-07] MEDS ORDERED: ACETAMINOPHEN 325 MG TABLET PO PRN (08:38)
--- NOTE | 2019-09-07 08:39 | PDOC PROGRESS REPORT ---
Subjective Progress Note for:: 09/07/19 Subjective:: Feeling better today, but really has not got up and moved around that much. Hemoglobin is dropped down to 7 so I discussed giving her 1 unit of packed red blood cell. She is agreeable. She cannot eat any of the cardiac diet because of the poor taste of it, I will change her to a regular diet. Reason For Visit: RIGHT LUNG PNEUMONIA,RIGHT LUNG MASS Physical Exam Vital Signs: Temp Pulse Resp BP Pulse Ox 98.1 F 83 17 107/52 L 95 09/07/19 00:03 09/07/19 00:03 09/07/19 00:03 09/07/19 00:03 09/07/19 05:10 Pulse Oximeter Continuous Start: 09/04/19 23:36 Freq: RTQ4 Status: Active Protocol: Document 09/07/19 05:10 [facility] (Rec: 09/07/19 05:11 [facility] [id number]) Pulse Oximetry Assessment Oxygen Saturation (92-100) 95 Oxygen Delivery Method Room Air Fraction of Inspired Oxygen (FIO2) 21 Equipment Usage Equipment in Use Continuous SpO2 Machine # 2 Intake & Output 09/06/19 09/07/19 09/08/19 06:59 06:59 06:59 Intake Total 1950 3020 Balance 1950 3020 Weight 66.7 kg 70.6 kg General appearance: PRESENT: no acute distress, well-developed, well-nourished Head exam: PRESENT: atraumatic, normocephalic Eye exam: PRESENT: conjunctiva pink, EOMI, PERRLA. ABSENT: scleral icterus Ear exam: PRESENT: normal external ear exam Mouth exam: PRESENT: moist, tongue midline Neck exam: ABSENT: carotid bruit, JVD, lymphadenopathy, thyromegaly Respiratory exam: PRESENT: clear to auscultation ella. ABSENT: rales, rhonchi, wheezes Cardiovascular exam: PRESENT: RRR. ABSENT: diastolic murmur, rubs, systolic murmur Pulses: PRESENT: normal dorsalis pedis pul Vascular exam: PRESENT: normal capillary refill GI/Abdominal exam: PRESENT: normal bowel sounds, soft. ABSENT: distended, guarding, mass, organolmegaly, rebound, tenderness Rectal exam: PRESENT: deferred Extremities exam: PRESENT: full ROM. ABSENT: calf tenderness, clubbing, pedal edema Neurological exam: PRESENT: alert, awake, oriented to person, oriented to place, oriented to time, oriented to situation, CN II-XII grossly intact. ABSENT: motor sensory deficit Psychiatric exam: PRESENT: appropriate affect, normal mood. ABSENT: homicidal ideation, suicidal ideation Skin exam: PRESENT: dry, intact, warm. ABSENT: cyanosis, rash Results Laboratory Results: 09/07/19 05:11 09/05/19 05:40 09/07/19 05:11 WBC 17.3 H RBC 2.85 L Hgb 7.0 L Hct 21.8 L MCV 77 L MCH 24.7 L MCHC 32.2 RDW 19.9 H Plt Count 505 H 09/04/19 19:07 Clean Catch Midstream Urine Culture - Final Mixed Urogenital Brittani 09/04/19 14:04 Troponin I < 0.012 Impressions: Chest CT 09/04/19 17:35 IMPRESSION: Continued enlargement of large right perihilar mass which completely obstructs the right mainstem bronchus, compatible with worsening malignancy. In addition, focal hypodensity within the posterior aspect of the right main pulmonary artery could either indicate associated tumor thrombus or bland thrombus. Additional hypodensity within a left lower lobe segmental pulmonary artery is most likely artifactual given the presence of extensive motion artifact at this location. However, additional pulmonary emboli could technically have this appearance. If confirmation is desired, consider dedicated CTPA. New confluent consolidation/ground glass opacity about the remainder of the right middle lobe as well as the right lower lobe, suspicious for postobstructive pneumonia. The graft small right pleural effusion, likely malignant. Stable spiculated nodule located at the left apex, unchanged from 06/08/2019. Stable left adrenal mass, indicative of metastatic disease. TECHNICAL DOCUMENTATION: Quality ID # 436: Final reports with documentation of one or more dose reduction techniques (e.g., Automated exposure control, adjustment of the mA and/or kV according to patient size, use of iterative reconstruction technique) copyright 2011 [employer]- All Rights Reserved Assessment & Plan - Diagnosis (1) Pneumonia involving right lung Qualifiers: Pneumonia type: due to unspecified organism Lung location: middle lobe of lung Qualified Code(s): J18.9 - Pneumonia, unspecified organism Is this a current diagnosis for this admission?: Yes Plan: Continue with IV antibiotics for now, asked nursing to get her up and move around a little bit to see how she does. She does well with that she could pot entially go home on oral medications tomorrow. (2) Anemia of chronic disease Is this a current diagnosis for this admission?: Yes Plan: Hemoglobin dropped to 7, plan for transfusion (3) Cancer of middle lobe of lung Is this a current diagnosis for this admission?: Yes Plan: We will discuss further treatment options as an outpatient - Time Time Spent with patient: 35 or more minutes
--- NOTE | 2019-09-07 09:07 | RADIOLOGY REPORT (SQ) ---
EXAM DESCRIPTION: CHEST SINGLE VIEW COMPLETED DATE/TIME: 09/07/2019 8:30 am REASON FOR STUDY: reassess infiltrates COMPARISON: 09/04/2019 NUMBER OF VIEWS: One view. TECHNIQUE: Single frontal radiographic image of the chest acquired. LIMITATIONS: None. FINDINGS: LUNGS AND PLEURA: Near complete opacification of the right lung with sparing of the apex n ot significantly changed. Known small left apical nodule not well visualized on plain x-ray. No inf iltrate in the left lung. MEDIASTINUM AND HEART: Stable heart size and mediastinal structures. BONY STRUCTURES: No acute findings. HARDWARE: None. OTHER: No other significant finding. IMPRESSION: Near complete opacification of the right lung consistent with known malignancy. No sign ificant change. TECHNICAL DOCUMENTATION: JOB ID: [id number] Reading location - IP/workstation name: [email or web address]
[2019-09-07] MEDS: PREDNISONE 10 MG TABLET PO SCH ×2 (10:03→17:24)
[2019-09-07] MEDS: RINGERS SOLUTION,LACTATED 1,000 ML IV PRN (10:03)
[2019-09-07] MEDS: FAMOTIDINE 20 MG TABLET PO SCH ×2 (10:03→22:24)
[2019-09-07] MEDS: DOCUSATE SODIUM 100 MG CAPSULE PO SCH ×2 (10:03→17:24)
[2019-09-07] MEDS: CEFEPIME 1 GM/D5W RTU 1 GM/50 ML RTUPB IV SCH ×2 (10:03→22:20)
[2019-09-07 10:49] LABS: VANCOMYCIN,TROUGH 6.5 ug/mL (5.0-20.0)
[2019-09-07] MEDS: VANCOMYCIN HCL 1,000 MG in DEXTROSE 5%-WATER 250 ML IV SCH ×2 (11:22→17:24)
--- NOTE | 2019-09-07 14:52 | PDOC PROGRESS REPORT ---
Subjective Progress Note for:: 09/07/19 Subjective:: This is a 74 year old female with now nearly 4-year history of stage IV lung cancer with multifocal disease in the lung getting chemotherapy who presented with lethargy. She was found to have worsening right lung opacities likely postobstructive pneumonia. She was started on azithromycin and Rocephin. 09/05: Upon encounter, she appears comfortable. She is on room air at the moment. She says that she has mild shortness of breath but she feels it is improving. She denies chest pain. 09/06: She says she continues to feel better and her shortness of breath con tinued to improve. Denies chest pain. Denies any other acute complaint. Sputum culture pending. 09/07: No acute event overnight. She denies acute complaints. She has not ambulated yet. Continue 1 more day of IV antibiotics. Anticipate switching to oral antibiotic and possible discharge in the next 24 hours. Reason For Visit: RIGHT LUNG PNEUMONIA,RIGHT LUNG MASS Physical Exam Vital Signs: Temp Pulse Resp BP Pulse Ox 98.4 F 86 16 128/67 H 93 09/07/19 13:35 09/07/19 13:35 09/07/19 13:35 09/07/19 13:35 09/07/19 13:35 Pulse Oximeter Continuous Start: 09/04/19 23:36 Freq: RTQ4 Status: Active Protocol: Document 09/07/19 11:50 H[facility] (Rec: 09/07/19 13:45 [facility] [id number]) Pulse Oximetry Assessment Oxygen Saturation (92-100) 94 Oxygen Delivery Method Room Air Fraction of Inspired Oxygen (FIO2) 21 Equipment Usage Equipment in Use Continuous SpO2 Machine # 2 Intake & Output 09/06/19 09/07/19 09/08/19 06:59 06:59 06:59 Intake Total 1950 4020 300 Balance 1950 4020 300 Weight 147 lb 0.773 oz 155 lb 10.342 oz General appearance: PRESENT: no acute distress, well-developed, well-nourished Head exam: PRESENT: atraumatic, normocephalic Eye exam: PRESENT: conjunctiva pink, EOMI, PERRLA. ABSENT: scleral icterus Ear exam: PRESENT: normal external ear exam Mouth exam: PRESENT: moist, tongue midline Neck exam: ABSENT: carotid bruit, JVD, lymphadenopathy, thyromegaly Respiratory exam: PRESENT: rhonchi. ABSENT: rales, wheezes Cardiovascular exam: PRESENT: RRR. ABSENT: diastolic murmur, rubs, systolic murmur Pulses: PRESENT: normal dorsalis pedis pul GI/Abdominal exam: PRESENT: normal bowel sounds, soft. ABSENT: distended, guarding, mass, organolmegaly, rebound, tenderness Rectal exam: PRESENT: deferred Extremities exam: PRESENT: full ROM. ABSENT: calf tenderness, clubbing, pedal edema Neurological exam: PRESENT: alert, awake, oriented to person, oriented to place, oriented to time, oriented to situation, CN II-XII grossly intact. ABSENT: motor sensory deficit Results Laboratory Results: 09/07/19 05:11 09/07/19 09:55 09/07/19 09/07/19 09/07/19 05:11 09:55 09:55 WBC 17.3 H RBC 2.85 L Hgb 7.0 L Hct 21.8 L MCV 77 L MCH 24.7 L MCHC 32.2 RDW 19.9 H Plt Count 505 H Creatinine 0.52 Est GFR ( Amer) > 60 Blood Type O POSITIVE Antibody Screen NEGATIVE 09/06/19 21:15 Sputum Gram Stain - Final 09/06/19 21:15 Sputum Sputum Culture - Final 09/04/19 19:07 Clean Catch Midstream Urine Culture - Final Mixed Urogenital Brittani 09/04/19 14:04 Troponin I < 0.012 Impressions: Chest CT 09/04/19 17:35 IMPRESSION: Continued enlargement of large right perihilar mass which completely obstructs the right mainstem bronchus, compatible with worsening malignancy. In addition, focal hypodensity within the posterior aspect of the right main pulmonary artery could either indicate associated tumor thrombus or bland thrombus. Additional hypodensity within a left lower lobe segmental pulmonary artery is most likely artifactual given the presence of extensive motion artifact at this location. However, additional pulmonary emboli could technically have this appearance. If confirmation is desired, consider dedicated CTPA. New confluent consolidation/ground glass opacity about the remainder of the right middle lobe as well as the right lower lobe, suspicious for postobstructive pneumonia. The graft small right pleural effusion, likely malignant. Stable spiculated nodule located at the left apex, unchanged from 06/08/2019. Stable left adrenal mass, indicative of metastatic disease. TECHNICAL DOCUMENTATION: Quality ID # 436: Final reports with documentation of one or more dose reduction techniques (e.g., Automated exposure control, adjustment of the mA and/or kV according to patient size, use of iterative reconstruction technique) copyright 2011 [employer]- All Rights Reserved Chest X-Ray 09/07/19 07:00 IMPRESSION: Near complete opacification of the right lung consistent with known malignancy. No significant change. Assessment and Plan - Diagnosis (1) Pneumonia involving right lung Qualifiers: Pneumonia type: due to unspecified organism Lung location: middle lobe of lung Qualified Code(s): J18.9 - Pneumonia, unspecified organism Is this a current diagnosis for this admission?: Yes Plan: 09/05: Likely postobstructive in nature from right lung mass. Will revise antibiotics and will treat this as HCAP as she is also getting chemotherapy. Switch antibiotics to cefepime and vancomycin for now. Will obtain sputum culture. 09/06: Continue IV antibiotics. 09/07: Continue 1 more day of IV antibiotics. Anticipate switching to oral antibiotic and possible discharge in the next 24 hours. (2) Mass of right lung Is this a current diagnosis for this admission?: Yes Plan: Oncology following. - Plan Summary Summary: Patient will be admitted to the medical floor where she will receive routine supportive and symptomatic cares. IV antibiotics using Rocephin and Zithromax. To receive a pulmonary toilet utilizing Xopenex, Atrovent and Mucomyst delivered via nebulizer. She will receive IV fluids at maintenance levels as required until her oral intake improves. Dr. Alberto will be consulted for oncology. She will receive morphine sulfate 2 to 4 mg IV every 2 hours on as-needed basis for pain. Her usual home medications will be resumed as soon as her medication list has been verified and reconciled. - Time Time Spent with patient: 25-34 minutes
[2019-09-07] MEDS: LEVALBUTEROL HCL NEB 0.63 MG/3 ML AMPUL NEB PRN (20:31)
[2019-09-08] MEDS: IPRATROPIUM BROMIDE 0.02% NEB 0.5 MG/2.5 ML AMPUL NEB SCH ×2 (01:23→07:50)
[2019-09-08] MEDS: LEVALBUTEROL HCL NEB 1.25 MG/3 ML AMPUL NEB SCH ×2 (01:24→07:50)
[2019-09-08] MEDS: RINGERS SOLUTION,LACTATED 1,000 ML IV PRN (02:24)
[2019-09-08] MEDS: VANCOMYCIN HCL 1,000 MG in DEXTROSE 5%-WATER 250 ML IV SCH ×2 (02:24→10:53)
[2019-09-08] MEDS: HEPARIN SOD (PORCINE) 5,000 UNIT/ML 1 ML VIAL SUBCUT SCH (05:37)
[2019-09-08] MEDS: ACETYLCYSTEINE 20% SOLN 800 MG/4 ML VIAL.NEB NEB SCH (07:50)
--- NOTE | 2019-09-08 08:56 | PDOC PROGRESS REPORT ---
Subjective Progress Note for:: 09/08/19 Subjective:: Patient did well yesterday and walked the ayala with minimal assistance. O2 sat is been good. She is feeling overall better and eating better. She has not had a BM in 5 days. Reason For Visit: RIGHT LUNG PNEUMONIA,RIGHT LUNG MASS Physical Exam Vital Signs: Temp Pulse Resp BP Pulse Ox 98.2 F 74 20 125/66 98 09/08/19 08:00 09/08/19 08:00 09/08/19 08:00 09/08/19 08:00 09/08/19 08:00 Pulse Oximeter Continuous Start: 09/04/19 23:36 Freq: RTQ4 Status: Active Protocol: Document 09/08/19 07:50 HCR (Rec: 09/08/19 08:46 HCR [id number]) Pulse Oximetry Assessment Oxygen Saturation (92-100) 96 Oxygen Delivery Method Room Air Fraction of Inspired Oxygen (FIO2) 21 Equipment Usage Equipment in Use Continuous SpO2 Machine # 2 Intake & Output 09/07/19 09/08/19 09/09/19 06:59 06:59 06:59 Intake Total 4020 3750 Balance 4020 3750 Weight 70.6 kg 72.3 kg General appearance: PRESENT: no acute distress, well-developed, well-nourished Head exam: PRESENT: atraumatic, normocephalic Eye exam: PRESENT: conjunctiva pink, EOMI, PERRLA. ABSENT: scleral icterus Ear exam: PRESENT: normal external ear exam Mouth exam: PRESENT: moist, tongue midline Neck exam: ABSENT: carotid bruit, JVD, lymphadenopathy, thyromegaly Respiratory exam: PRESENT: clear to auscultation ella. ABSENT: rales, rhonchi, wheezes Cardiovascular exam: PRESENT: RRR. ABSENT: diastolic murmur, rubs, systolic murmur Pulses: PRESENT: normal dorsalis pedis pul Vascular exam: PRESENT: normal capillary refill GI/Abdominal exam: PRESENT: normal bowel sounds, soft. ABSENT: distended, guarding, mass, organolmegaly, rebound, tenderness Rectal exam: PRESENT: deferred Extremities exam: PRESENT: full ROM. ABSENT: calf tenderness, clubbing, pedal edema Neurological exam: PRESENT: alert, awake, oriented to person, oriented to place, oriented to time, oriented to situation, CN II-XII grossly intact. ABSENT: motor sensory deficit Psychiatric exam: PRESENT: appropriate affect, normal mood. ABSENT: homicidal ideation, suicidal ideation Skin exam: PRESENT: dry, intact, warm. ABSENT: cyanosis, rash Results Laboratory Results: 09/07/19 05:11 09/07/19 09:55 09/07/19 09/07/19 09:55 09:55 Creatinine 0.52 Est GFR ( Amer) > 60 Blood Type O POSITIVE Antibody Screen NEGATIVE 09/06/19 21:15 Sputum Gram Stain - Final 09/06/19 21:15 Sputum Sputum Culture - Final 09/04/19 14:04 Troponin I < 0.012 Impressions: Chest CT 09/04/19 17:35 IMPRESSION: Continued enlargement of large right perihilar mass which completely obstructs the right mainstem bronchus, compatible with worsening malignancy. In addition, focal hypodensity within the posterior aspect of the right main pulmonary artery could either indicate associated tumor thrombus or bland thrombus. Additional hypodensity within a left lower lobe segmental pulmonary artery is most likely artifactual given the presence of extensive motion artifact at this location. However, additional pulmonary emboli could technically have this appearance. If confirmation is desired, consider dedicated CTPA. New confluent consolidation/ground glass opacity about the remainder of the right middle lobe as well as the right lower lobe, suspicious for postobstructive pneumonia. The graft small right pleural effusion, likely malignant. Stable spiculated nodule located at the left apex, unchanged from 06/08/2019. Stable left adrenal mass, indicative of metastatic disease. TECHNICAL DOCUMENTATION: Quality ID # 436: Final reports with documentation of one or more dose reduction techniques (e.g., Automated exposure control, adjustment of the mA and/or kV according to patient size, use of iterative reconstruction technique) copyright 2011 [employer]- All Rights Reserved Chest X-Ray 09/07/19 07:00 IMPRESSION: Near complete opacification of the right lung consistent with known malignancy. No significant change. Assessment & Plan - Diagnosis (1) Pneumonia involving right lung Qualifiers: Pneumonia type: due to unspecified organism Lung location: middle lobe of lung Qualified Code(s): J18.9 - Pneumonia, unspecified organism Is this a current diagnosis for this admission?: Yes Plan: Improving, continue with IV antibiotic today and probable discharge later today on oral antibiotic (2) Anemia of chronic disease Is this a current diagnosis for this admission?: Yes Plan: Awaiting CBC from transfusion (3) Cancer of middle lobe of lung Is this a current diagnosis for this admission?: Yes Plan: We will make follow-up for 2 weeks post discharge. (4) Constipated Qualifiers: Constipation type: drug induced constipation Qualified Code(s): K59.03 - Drug induced constipation Is this a current diagnosis for this admission?: Yes Plan: Plan for enema today, may repeat. - Time Time Spent with patient: 35 or more minutes
[2019-09-08] MEDS ORDERED: NA PHOS,M-B/NA PHOS,DI-BA (ADULT) 133 ML ENEMA PR ONE (09:45)
[2019-09-08 10:22] LABS: HEMATOCRIT 27.6 % (36.0-47.0); HEMOGLOBIN 8.8 g/dL (12.0-15.5); MEAN CORPUSCULAR HEMOGLOBIN 25.3 pg (27.0-33.4); MEAN CORPUSCULAR HGB CONC 32.1 g/dL (32.0-36.0); MEAN CORPUSCULAR VOLUME 79 fl (80-97); PLATELET COUNT 490 10^3/uL (150-450); RED BLOOD COUNT 3.49 10^6/uL (3.72-5.28); RED CELL DISTRIBUTION WIDTH 20.7 % (11.5-14.0); WHITE BLOOD COUNT 18.5 10^3/uL (4.0-10.5)
[2019-09-08 10:38] LABS: VANCOMYCIN,TROUGH 15.1 ug/mL (5.0-20.0)
[2019-09-08] MEDS: DOCUSATE SODIUM 100 MG CAPSULE PO SCH (10:52)
[2019-09-08] MEDS: CEFEPIME 1 GM/D5W RTU 1 GM/50 ML RTUPB IV SCH (10:53)
[2019-09-08] MEDS: FAMOTIDINE 20 MG TABLET PO SCH (10:53)
[2019-09-08] MEDS: PREDNISONE 10 MG TABLET PO SCH (10:53)
[2019-09-08 10:56] LABS: ABSOLUTE LYMPHOCYTES# (MANUAL) 2.2 10^3/uL (0.5-4.7); ABSOLUTE MONOCYTES # (MANUAL) 0.9 10^3/uL (0.1-1.4); ANISOCYTOSIS 2+; BASOPHILS % (MANUAL) 0 % (0-2); EOSINOPHILS % (MANUAL) 0 % (0-6); LYMPHOCYTES % (MANUAL) 12 % (13-45); MONOCYTES % (MANUAL) 5 % (3-13); PLATELET COMMENT ADEQUATE; SEGMENTED NEUTROPHILS % (MAN) 83 % (42-78); TOTAL CELLS COUNTED 100
[2019-09-08 10:57] LABS: POLYCHROMASIA 1+
[2019-09-08 10:58] LABS: HYPOCHROMASIA SLIGHT; TEAR DROP CELLS SLIGHT
[2019-09-08 12:57] VITALS: BP 120/62
--- NOTE | 2019-09-09 18:01 | PDOC DISCHARGE SUMMARY ---
Impression - Admit/DC Date/PCP Admission Date/Primary Care Provider: 09/04/19 23:55 NICOLE SANTAMARIA MD Discharge Date: 09/08/19 - Discharge Diagnosis (1) Pneumonia involving right lung Is this a current diagnosis for this admission?: Yes (2) Mass of right lung Is this a current diagnosis for this admission?: Yes - Assessment Summary: Patient will be admitted to the medical floor where she will receive routine supportive and symptomatic cares. IV antibiotics using Rocephin and Zithromax. To receive a pulmonary toilet utilizing Xopenex, Atrovent and Mucomyst delivered via nebulizer. She will receive IV fluids at maintenance levels as required until her oral intake improves. Dr. Santamaria will be consulted for oncology. She will receive morphine sulfate 2 to 4 mg IV every 2 hours on as-needed basis for pain. Her usual home medications will be resumed as soon as her medication list has been verified and reconciled. - Additional Information Resuscitation Status: Do Not Intubate Discharge Diet: As Tolerated Discharge Activity: Activity As Tolerated, Balance Activity w/Rest Referrals: NICOLE SANTAMARIA MD [Primary Care Provider] - 09/15/19 1:15 pm Prescriptions: Prednisone [Deltasone 10 mg Tablet] 10 mg PO BID 4 Days #8 tablet Levofloxacin [Levaquin 500 mg Tablet] 500 mg PO DAILY 5 Days #5 tablet Polyethylene Glycol 3350 [Miralax Powder 17 gm/Packet] 1 packet PO DAILY PRN #1 pkg PRN Reason: For Constipation Home Medications: Amlodipine Besylate [Norvasc 10 mg Tablet] 10 mg PO DAILY 09/05/19 Benzonatate [Tessalon Perles 100 mg Capsule] 100 mg PO Q8HP PRN 09/05/19 Rosuvastatin Calcium [Crestor 10 mg Tablet] 10 mg PO DAILY 09/05/19 Levofloxacin [Levaquin 500 mg Tablet] 500 mg PO DAILY 5 Days #5 tablet 09/08/19 Polyethylene Glycol 3350 [Miralax Powder 17 gm/Packet] 1 packet PO DAILY PRN #1 pkg 09/08/19 Prednisone [Deltasone 10 mg Tablet] 10 mg PO BID 4 Days #8 tablet 09/08/19 History of Present Illiness History of Present Illness: Admitting hospitalist's H&P: MORA SHARMA is a 74 year old female who presents the emergency room with a 6- day history of cough. Patient and her family admit she has had a productive cough with yellowish mucus for the last 6 days. The cough has been of moderate intensity and has been accompanied by chills (without fever) and wheezing. The cough has been associated with rhinorrhea and decreased oral intake. Patient denies other associated or accompanying signs and symptoms. Patient denies prior similar episodes. She has not identified any aggravating or ameliorating factors for her cough. In the emergency room the patient was found to have a right-sided pneumonia with atelectasis and a right lung mass. She has a known history of bilateral lung cancer, and according to Dr. Santamaria she has been experiencing generalized weakness and weight loss for several months. She was subsequently admitted in the hospital for further evaluation treatment. Hospital Course Hospital Course: This is a 74 year old female with now nearly 4-year history of stage IV lung cancer with multifocal disease in the lung getting chemotherapy who presented with lethargy. She was found to have worsening right lung opacities likely postobstructive pneumonia. She was started on azithromycin and Rocephin. Patient was not hypoxic and she has been maintaining her saturation while on room air. She did improve and felt better with IV antibiotics. We discussed in length that her pneumonia is post obstructive in nature related to her cancer and that there is a chance she will have recurrent pneumonia or will not achieve complete resolution of her postobstructive pneumonia. Discussed with oncology. She is not a candidate for bronchial stenting or intervention. She did return to her baseline and was able to ambulate on room air. She will closely follow- up with oncology for further plan of care for her stage IV lung cancer. Physical Exam Vital Signs: Temp Pulse Resp BP Pulse Ox 98.1 F 81 24 H 120/62 100 09/08/19 11:45 09/08/19 11:45 09/08/19 11:45 09/08/19 11:45 09/08/19 11:45 Pulse Oximeter Continuous Start: 09/04/19 23:36 Freq: RTQ4 Status: Discharge Protocol: Document 09/08/19 07:50 HCR (Rec: 09/08/19 08:46 HCR [id number]) Pulse Oximetry Assessment Oxygen Saturation (92-100) 96 Oxygen Delivery Method Room Air Fraction of Inspired Oxygen (FIO2) 21 Equipment Usage Equipment in Use Continuous SpO2 Machine # 2 Intake & Output 09/08/19 09/09/19 09/10/19 06:59 06:59 06:59 Intake Total 3750 Balance 3750 Weight 159 lb 6.307 oz General appearance: PRESENT: no acute distress, well-developed, well-nourished Head exam: PRESENT: atraumatic, normocephalic Eye exam: PRESENT: conjunctiva pink, EOMI, PERRLA. ABSENT: scleral icterus Ear exam: PRESENT: normal external ear exam Mouth exam: PRESENT: moist, tongue midline Neck exam: ABSENT: carotid bruit, JVD, lymphadenopathy, thyromegaly Respiratory exam: PRESENT: rhonchi. ABSENT: rales, wheezes Cardiovascular exam: PRESENT: RRR. ABSENT: diastolic murmur, rubs, systolic murmur Pulses: PRESENT: normal dorsalis pedis pul GI/Abdominal exam: PRESENT: normal bowel sounds, soft. ABSENT: distended, guarding, mass, organolmegaly, rebound, tenderness Rectal exam: PRESENT: deferred Extremities exam: PRESENT: full ROM. ABSENT: calf tenderness, clubbing, pedal edema Neurological exam: PRESENT: alert, awake, oriented to person, oriented to place, oriented to time, oriented to situation, CN II-XII grossly intact. ABSENT: motor sensory deficit Results Laboratory Results: WBC 18.5 10^3/uL (4.0-10.5) H 09/08/19 09:57 RBC 3.49 10^6/uL (3.72-5.28) L 09/08/19 09:57 Hgb 8.8 g/dL (12.0-15.5) L 09/08/19 09:57 Hct 27.6 % (36.0-47.0) L 09/08/19 09:57 MCV 79 fl (80-97) L 09/08/19 09:57 MCH 25.3 pg (27.0-33.4) L 09/08/19 09:57 MCHC 32.1 g/dL (32.0-36.0) 09/08/19 09:57 RDW 20.7 % (11.5-14.0) H 09/08/19 09:57 Plt Count 490 10^3/uL (150-450) H 09/08/19 09:57 Lymph % (Auto) Not Reportable 09/08/19 09:57 [place] % (Auto) Not Reportable 09/08/19 09:57 Eos % (Auto) Not Reportable 09/08/19 09:57 Baso % (Auto) Not Reportable 09/08/19 09:57 Absolute Neuts (auto) Not Reportable 09/08/19 09:57 Absolute Lymphs (auto) Not Reportable 09/08/19 09:57 Absolute Monos (auto) Not Reportable 09/08/19 09:57 Absolute Eos (auto) Not Reportable 09/08/19 09:57 Absolute Basos (auto) Not Reportable 09/08/19 09:57 Total Counted 100 09/08/19 09:57 Seg Neutrophils % Not Reportable 09/08/19 09:57 Seg Neuts % (Manual) 83 % (42-78) H 09/08/19 09:57 Lymphocytes % (Manual) 12 % (13-45) L 09/08/19 09:57 Monocytes % (Manual) 5 % (3-13) 09/08/19 09:57 Eosinophils % (Manual) 0 % (0-6) 09/08/19 09:57 Basophils % (Manual) 0 % (0-2) 09/08/19 09:57 Abs Neuts (Manual) 15.4 10^3/uL (1.7-8.2) H 09/08/19 09:57 Abs Lymphs (Manual) 2.2 10^3/uL (0.5-4.7) 09/08/19 09:57 Abs Monocytes (Manual) 0.9 10^3/uL (0.1-1.4) 09/08/19 09:57 Absolute Eos (Manual) 0.0 10^3/uL (0.0-0.6) 09/08/19 09:57 Abs Basophils (Manual) 0.0 10^3/uL (0.0-0.2) 09/08/19 09:57 Platelet Comment ADEQUATE 09/08/19 09:57 Polychromasia 1+ 09/08/19 09:57 Hypochromasia SLIGHT 09/08/19 09:57 Anisocytosis 2+ 09/08/19 09:57 Microcytosis SLIGHT 09/08/19 09:57 Tear Drop Cells SLIGHT 09/08/19 09:57 Sodium 137.6 mmol/L (137-145) 09/05/19 05:40 Potassium 4.0 mmol/L (3.6-5.0) 09/05/19 05:40 Chloride 101 mmol/L (98-107) 09/05/19 05:40 Carbon Dioxide 26 mmol/L (22-30) 09/05/19 05:40 Anion Gap 11 (5-19) 09/05/19 05:40 BUN 13 mg/dL (7-20) 09/05/19 05:40 Creatinine 0.52 mg/dL (0.52-1.25) 09/08/19 09:57 Est GFR ( Amer) > 60 (>60) 09/08/19 09:57 Est GFR (MDRD) Non-Af > 60 (>60) 09/08/19 09:57 Glucose 274 mg/dL (75-110) H 09/05/19 05:40 Calcium 9.1 mg/dL (8.4-10.2) 09/05/19 05:40 Total Bilirubin 0.8 mg/dL (0.2-1.3) 09/04/19 14:04 Direct Bilirubin 0.3 mg/dL (0.0-0.4) 09/04/19 14:04 Neonat Total Bilirubin Not Reportable 09/04/19 14:04 Neonat Direct Bilirubin Not Reportable 09/04/19 14:04 Neonat Indirect Bili Not Reportable 09/04/19 14:04 AST 75 U/L (14-36) H 09/04/19 14:04 ALT 66 U/L (<35) 09/04/19 14:04 Alkaline Phosphatase 103 U/L (38-126) 09/04/19 14:04 Troponin I < 0.012 ng/mL 09/04/19 14:04 Total Protein 7.3 g/dL (6.3-8.2) 09/04/19 14:04 Albumin 3.3 g/dL (3.5-5.0) L 09/04/19 14:04 Urine Color YELLOW 09/04/19 19:07 Urine Appearance CLOUDY 09/04/19 19:07 Urine pH 5.0 (5.0-9.0) 09/04/19 19:07 Ur Specific [place] 1.026 09/04/19 19:07 Urine Protein 100 mg/dL (NEGATIVE) H 09/04/19 19:07 Urine Glucose (UA) NEGATIVE mg/dL (NEGATIVE) 09/04/19 19:07 Urine Ketones NEGATIVE mg/dL (NEGATIVE) 09/04/19 19:07 Urine Blood NEGATIVE (NEGATIVE) 09/04/19 19:07 Urine Nitrite NEGATIVE (NEGATIVE) 09/04/19 19:07 Urine Bilirubin NEGATIVE (NEGATIVE) 09/04/19 19:07 Urine Urobilinogen 4.0 mg/dL (<2.0) H 09/04/19 19:07 Ur Leukocyte Esterase MODERATE (NEGATIVE) H 09/04/19 19:07 Urine WBC (Auto) 28 /HPF 09/04/19 19:07 Urine RBC (Auto) 4 /HPF 09/04/19 19:07 U Hyaline Cast (Auto) 3 /LPF 09/04/19 19:07 Squamous Epi Cells Auto 4 /HPF 09/04/19 19:07 Urine Mucus (Auto) MANY /LPF 09/04/19 19:07 Urine Ascorbic Acid 40 (NEGATIVE) H 09/04/19 19:07 Time Trough Drawn 0957 09/08/19 09:57 Vancomycin Trough 15.1 ug/mL (5.0-20.0) 09/08/19 09:57 Influenza A (Rapid) NEGATIVE (NEGATIVE) 09/04/19 20:12 Influenza B (Rapid) NEGATIVE (NEGATIVE) 09/04/19 20:12 Blood Type O POSITIVE 09/07/19 09:55 Blood Type Confirm O POSITIVE 09/07/19 10:02 Antibody Screen NEGATIVE 09/07/19 09:55 Crossmatch See Detail 09/07/19 09:55 09/04/19 14:04 Troponin I < 0.012 Impressions: Chest X-Ray 09/04/19 13:25 IMPRESSION: OPACIFICATION OF THE LOWER RIGHT HEMITHORAX WHICH MAY BE DUE TO PROGRESSIVE ENLARGEMENT OF THE RIGHT LUNG MASS, ATELECTASIS, AND/OR PLEURAL EFFUSION. Chest CT 09/04/19 17:35 IMPRESSION: Continued enlargement of large right perihilar mass which completely obstructs the right mainstem bronchus, compatible with worsening malignancy. In addition, focal hypodensity within the posterior aspect of the right main pulmonary artery could either indicate associated tumor thrombus or bland thrombus. Additional hypodensity within a left lower lobe segmental pulmonary artery is most likely artifactual given the presence of extensive motion artifact at this location. However, additional pulmonary emboli could technically have this appearance. If confirmation is desired, consider dedicated CTPA. New confluent consolidation/ground glass opacity about the remainder of the right middle lobe as well as the right lower lobe, suspicious for postobstructive pneumonia. The graft small right pleural effusion, likely malignant. Stable spiculated nodule located at the left apex, unchanged from 06/08/2019. Stable left adrenal mass, indicative of metastatic disease. TECHNICAL DOCUMENTATION: Quality ID # 436: Final reports with documentation of one or more dose reduction techniques (e.g., Automated exposure control, adjustment of the mA and/or kV according to patient size, use of iterative reconstruction technique) copyright 2011 [employer]- All Rights Reserved Chest X-Ray 09/07/19 07:00 IMPRESSION: Near complete opacification of the right lung consistent with known malignancy. No significant change. Stroke Is this a Stroke Patient?: No Acute Heart Failure - Is this a Heart Failure Patient?: No
== END 2019-09-08 12:02 | disposition home health service (06) | DRG 194 ==
LOC: ER 12:05 → EH 23:55 → 4N 09-05 19:36
PROVIDERS: ADMIT Emergency Medicine; ATTEND Emergency Medicine
PROC: 30233N1 Transfusion of Nonautologous Red Blood Cells into Peripheral Vein, Percutaneous Approach (ICD-10-PCS; principal; 2019-09-07)
DX: J18.9 Pneumonia, unspecified organism (principal); J44.0 Chronic obstructive pulmonary disease with (acute) lower respiratory infection; C34.2 Malignant neoplasm of middle lobe, bronchus or lung; Z66 Do not resuscitate; E78.5 Hyperlipidemia, unspecified; I10 Essential (primary) hypertension; Z60.2 Problems related to living alone; D63.0 Anemia in neoplastic disease; K59.03 Drug induced constipation; T50.905A Adverse effect of unspecified drugs, medicaments and biological substances, initial encounter; Z79.899 Other long term (current) drug therapy; Z51.11 Encounter for antineoplastic chemotherapy; Z87.891 Personal history of nicotine dependence; Z82.49 Family history of ischemic heart disease and other diseases of the circulatory system
CPT/HCPCS: 36415; 36430; 71045; 71046; 71260; 80048; 80053; 80202; 81001; 82565; 84484; 85025; 85027; 86850; 86900; 86901; 86920; 87040; 87070; 87086; 87205; 87804; 93005; 93010; 94640; 94762; 96361; 96374; 99284; J0456; J0692; J0696; J1644; J2920; J3370; J3490; J7030; J7060; J7120; J7512; J7614; J7620; P9016